=== PATIENT | male | born 1950 | race Caucasian/White ===

== ENCOUNTER 2022-03-19 04:17 | Day surgery (SDC) | payer OTHER, BC ==
[2022-03-12 17:30] VITALS: BMI 31.5
[2022-03-19] MEDS ORDERED: EPINEPHrine/PF 1 MG/1 ML (1:1,000) AMPULE ONE (07:23)
[2022-03-19] MEDS ORDERED: LIDOCAINE HCL/PF 1% SDV 5ML VIAL ONE (07:23)
[2022-03-19] MEDS ORDERED: TETRACAINE 0.5% OPHTH SOLN 2 ML BOTTLE ONE (07:23)
[2022-03-19] MEDS ORDERED: TOBRAMYCIN/DEXAMETHASONE OPHTH. OINTMENT 1 TUBE ONE (07:23)
[2022-03-19] MEDS ORDERED: POVIDONE-IODINE 5% OPHTHALMIC PREP 30 ML SOLUTION ONE (07:24)
[2022-03-19] MEDS ORDERED: ACETAMINOPHEN 325 MG TABLET (FP) PO PRN (07:29)
[2022-03-19] MEDS ORDERED: PHENYLEPHRINE 2.5% OPHTH SOLN 15 ML BOTTLE OP SCH (07:30)
[2022-03-19] MEDS ORDERED: TROPICAMIDE 1% OPHTH SOLN 15 ML BOTTLE OP SCH (07:30)
[2022-03-19] MEDS ORDERED: DICLOFENAC SODIUM 0.1% OPHTHALMIC 2.5ML BOTTLE OP SCH (07:30)
[2022-03-19] MEDS ORDERED: CIPROFLOXACIN HCL 0.3% OPHTH 2.5ML BOTTLE OP SCH (07:30)
[2022-03-19] MEDS ORDERED: CIPROFLOXACIN 0.3% EYE DROPS 5 ML BOTTLE ONE (08:43)
[2022-03-19] MEDS ORDERED: TROPICAMIDE 1% OPHTH SOLN 15 ML BOTTLE ONE (08:43)
[2022-03-19] MEDS ORDERED: PHENYLEPHRINE 2.5% OPTHALMIC DROP BOTTLE ONE (08:43)
[2022-03-19] MEDS ORDERED: DICLOFENAC SODIUM 0.1% OPHTHALMIC 2.5ML BOTTLE OS ONE ×3 (09:10→09:30)
[2022-03-19] MEDS ORDERED: TROPICAMIDE 1% OPHTH SOLN 15 ML BOTTLE OS ONE ×3 (09:10→09:30)
[2022-03-19] MEDS ORDERED: PHENYLEPHRINE 2.5% OPHTH SOLN 15 ML BOTTLE OS ONE ×3 (09:10→09:30)
[2022-03-19] MEDS ORDERED: CIPROFLOXACIN 0.3% EYE DROPS 5 ML BOTTLE OS ONE ×3 (09:10→09:30)
[2022-03-19] MEDS ORDERED: TETRACAINE 0.5% OPHTH SOLN 2 ML BOTTLE OS ONE (10:57)
[2022-03-19] MEDS ORDERED: MIDAZOLAM HCL 2 MG/2 ML SINGLE DOSE VIAL ONE (11:01)
[2022-03-19] MEDS ORDERED: POVIDONE-IODINE 5% OPHTHALMIC PREP 30 ML SOLUTION OS ONE (11:02)
[2022-03-19] MEDS ORDERED: BSS (NA/CA/MG/K) BALANCED SALT SOLUTION OPHTH SOLN 15 ML BOTTLE IO ONE (11:07)
[2022-03-19] MEDS ORDERED: LIDOCAINE HCL 1% PRESERVATIVE FREE - 30ML VIAL IO ONE (11:08)
[2022-03-19] MEDS ORDERED: CHONDROITIN SU A/HYALUR SOD 1 KIT IO ONE ×2 (11:09)
[2022-03-19] MEDS ORDERED: EPINEPHrine/PF 1 MG/1 ML (1:1,000) AMPULE SQ ONE (11:14)
[2022-03-19] MEDS ORDERED: TOBRAMYCIN/DEXAMETHASONE OPHTH. OINTMENT 1 TUBE TP ONE (11:35)
[2022-03-19 12:08] VITALS: TEMP 97.8
[2022-03-19 13:15] VITALS: BP 130/70; PULSE 70
== END 2022-03-19 12:50 | disposition home or self-care (01) ==
LOC: JASU-SURG 04:17
PROVIDERS: ATTEND Ophthalmology
PROC: 08RK3JZ Replacement of Left Lens with Synthetic Substitute, Percutaneous Approach (ICD-10-PCS; principal; 2022-03-19 10:30)
DX: H25.042 Posterior subcapsular polar age-related cataract, left eye (principal)
CPT/HCPCS: 66984; V2632; 82962

== ENCOUNTER 2022-04-16 03:51 | Day surgery (SDC) | payer OTHER, BC ==
[2022-04-15 10:59] VITALS: BMI 30.1
[~2022-04-16 03:51] MED LIST: EPINEPHrine/PF 1 MG/1 ML (1:1,000) AMPULE SQ ONE; TOBRAMYCIN/DEXAMETHASONE OPHTH. OINTMENT 1 TUBE OD ONE
[2022-04-16] MEDS ORDERED: ACETAMINOPHEN 325 MG TABLET (FP) PO PRN (07:29)
[2022-04-16 07:30] VITALS: RESP 18
[2022-04-16] MEDS ORDERED: DICLOFENAC SODIUM 0.1% OPHTHALMIC 2.5ML BOTTLE OP SCH (07:30)
[2022-04-16] MEDS ORDERED: CIPROFLOXACIN HCL 0.3% OPHTH 2.5ML BOTTLE OP SCH (07:30)
[2022-04-16] MEDS ORDERED: TROPICAMIDE 1% OPHTH SOLN 15 ML BOTTLE OP SCH (07:30)
[2022-04-16] MEDS ORDERED: PHENYLEPHRINE 2.5% OPHTH SOLN 15 ML BOTTLE OP SCH (07:30)
[2022-04-16] MEDS ORDERED: CIPROFLOXACIN 0.3% EYE DROPS 5 ML BOTTLE ONE (07:33)
[2022-04-16] MEDS ORDERED: PHENYLEPHRINE 2.5% OPTHALMIC DROP BOTTLE ONE (07:35)
[2022-04-16] MEDS ORDERED: TROPICAMIDE 1% OPHTH SOLN 15 ML BOTTLE ONE (07:35)
[2022-04-16] MEDS ORDERED: CIPROFLOXACIN 0.3% EYE DROPS 5 ML BOTTLE OD ONE ×2 (07:47→08:17)
[2022-04-16] MEDS ORDERED: PHENYLEPHRINE 2.5% OPHTH SOLN 15 ML BOTTLE OD ONE ×3 (07:47→08:17)
[2022-04-16] MEDS ORDERED: TROPICAMIDE 1% OPHTH SOLN 15 ML BOTTLE OD ONE ×3 (07:47→08:17)
[2022-04-16] MEDS ORDERED: DICLOFENAC SODIUM 0.1% OPHTHALMIC 2.5ML BOTTLE OD ONE ×3 (07:47→08:17)
[2022-04-16] MEDS ORDERED: CIPROFLOXACIN HCL 0.3% OPHTH 2.5ML BOTTLE OD ONE (08:02)
[2022-04-16] MEDS ORDERED: CHONDROITIN SU A/HYALUR SOD 1 KIT IO ONE (08:34)
[2022-04-16] MEDS ORDERED: MIDAZOLAM HCL 2 MG/2 ML SINGLE DOSE VIAL ONE (09:14)
[2022-04-16] MEDS ORDERED: TETRACAINE 0.5% OPHTH SOLN 2 ML BOTTLE TP ONE (09:26)
[2022-04-16] MEDS ORDERED: TETRACAINE 0.5% OPHTH SOLN 2 ML BOTTLE OD ONE (09:26)
[2022-04-16] MEDS ORDERED: POVIDONE-IODINE 5% OPHTHALMIC PREP 30 ML SOLUTION OD ONE ×2 (09:27)
[2022-04-16] MEDS ORDERED: BSS (NA/CA/MG/K) BALANCED SALT SOLUTION OPHTH SOLN 15 ML BOTTLE OD ONE (09:33)
[2022-04-16] MEDS ORDERED: LIDOCAINE HCL 1% PRESERVATIVE FREE - 30ML VIAL INF ONE ×2 (09:34)
[2022-04-16] MEDS ORDERED: LIDOCAINE HCL 1% PRESERVATIVE FREE - 30ML VIAL IO ONE (09:34)
[2022-04-16] MEDS ORDERED: EPINEPHrine/PF 1 MG/1 ML (1:1,000) AMPULE SQ ONE (09:42)
[2022-04-16] MEDS ORDERED: TOBRAMYCIN/DEXAMETHASONE OPHTH. OINTMENT 1 TUBE OD ONE (09:57)
[2022-04-16] MEDS ORDERED: TOBRAMYCIN/DEXAMETHASONE OPHTH. OINTMENT 1 TUBE TP ONE (09:57)
[2022-04-16 10:16] VITALS: BP 102/69; PULSE 70; TEMP 98.8
== END 2022-04-16 10:53 | disposition home or self-care (01) ==
LOC: JASU-SURG 03:51
PROVIDERS: ATTEND Ophthalmology
PROC: 08RJ3JZ Replacement of Right Lens with Synthetic Substitute, Percutaneous Approach (ICD-10-PCS; principal; 2022-04-16 09:30)
DX: H25.11 Age-related nuclear cataract, right eye (principal); I10 Essential (primary) hypertension; E11.9 Type 2 diabetes mellitus without complications
CPT/HCPCS: 82962

== ENCOUNTER 2023-08-24 17:51 | Inpatient (IN) | payer OTHER, BC ==
[2023-08-24] MEDS ORDERED: SODIUM CHLORIDE 1,000 ML IV SCH (18:30)
[2023-08-24 19:12] LABS: BASO % 0.1 % (0-2.0); EOS % 0.1 % (0-4.5); HEMATOCRIT 42.2 % (35.4-49); HEMOGLOBIN 13.4 GM/dL (11.7-16.9); LYMPH % 6.3 % (8-40); MCH 28.9 pg (25.7-33.7); MCHC 31.7 g/dl (32.0-35.9); MEAN CELL VOLUME 91.4 fl (80-96); MEAN PLT VOLUME 9.9 fl (7.5-11.1); MONO % 7.9 % (3.8-10.2); NEUT % 85.6 % (42.8-82.8); PLATELET COUNT 160 10^3/uL (134-434); RBC 4.62 M/mm3 (4.00-5.60); RDW 14.9 % (11.9-15.9); WHITE BLOOD COUNT 10.6 K/mm3 (4.0-10.0)
[2023-08-24 19:19] LABS: CHLORIDE 114 mmol/L (98-107); SODIUM 140 mmol/L (136-145)
[2023-08-24 19:19] LABS: INR 1.03 (0.83-1.09); PROTHROMBIN TIME (PATIENT) 11.9 SEC (9.7-13.0)
[2023-08-24 19:22] LABS: CALCIUM 8.2 mg/dL (8.5-10.1)
[2023-08-24 19:22] LABS: ACTIVATED PTT 29.4 SECONDS (25.2-36.5)
[2023-08-24 19:23] LABS: ALBUMIN 3.1 g/dl (3.4-5.0); ANION GAP 18 mmol/L (4-13); CO2 8 mmol/L (21-32)
[2023-08-24 19:24] LABS: GLUCOSE,RANDOM 181 mg/dL (74-106)
[2023-08-24 19:26] LABS: SGOT/AST 126 U/L (15-37); SGPT/ALT 35 U/L (13-61)
[2023-08-24 19:27] LABS: CHOLESTEROL 113 mg/dL (50-200)
[2023-08-24 19:28] LABS: TOT PROT 6.6 g/dl (6.4-8.2)
[2023-08-24 19:29] LABS: BILIRUBIN,TOTAL 0.6 mg/dL (0.2-1); LDL CHOLESTEROL (ONLY SJRH) 41 mg/dL (5-100)
[2023-08-24 19:30] LABS: ALK PHOS 72 U/L (45-117); HDL CHOLESTEROL 42 mg/dL (40-60)
[2023-08-24 19:53] LABS: BLOOD UREA NITROGEN 169.6 mg/dL (7-18); CREATININE 7.7 mg/dL (0.55-1.3)
[2023-08-24 20:32] LABS: EPI CELLS 1 /uL (0-25.1); HYALINE CASTS 2 /uL (0-3.1); URINE APPEARANCE CLOUDY; URINE BACTERIA 1120 /uL (0-1359); URINE BILIRUBIN NEGATIVE (NEGATIVE); URINE COLOR YELLOW; URINE GLUCOSE (UA) NEGATIVE (NEGATIVE); URINE KETONE TRACE (NEGATIVE); URINE LEUK ESTERASE 2+ (NEGATIVE); URINE NITRITE NEGATIVE (NEGATIVE); URINE PROTEIN 1+ (NEGATIVE); URINE RBC 547 /uL (0-23.9); URINE UROBILINOGEN 0.2 mg/dL (0.2-1.0); URINE WBC 814 /uL (0-25.8)
[2023-08-24 20:44] LABS: MAGNESIUM 3.7 mg/dL (1.8-2.4)
[2023-08-24 20:57] LABS: CHLORIDE 115 mmol/L (98-107); POTASSIUM 5.1 mmol/L (3.5-5.1); SODIUM 142 mmol/L (136-145)
[2023-08-24 20:58] LABS: ANION GAP 19 mmol/L (4-13); CO2 8 mmol/L (21-32)
[2023-08-24 20:59] LABS: GLUCOSE,RANDOM 181 mg/dL (74-106)
[2023-08-24 21:11] LABS: BLOOD UREA NITROGEN 166.6 mg/dL (7-18); CREATININE 7.8 mg/dL (0.55-1.3)
[2023-08-24] MEDS ORDERED: VANCOMYCIN 1,000 MG in DEXTROSE 5%-WATER - 250 ML IVPB ONE (21:11)
[2023-08-24 21:14] LABS: PHOSPHOROUS 10.8 mg/dL (2.5-4.9)
[2023-08-24] MEDS ORDERED: PIPERACILLIN/TAZOB 4.5 GM 3.375 GM in DEXTROSE 5%-WATER 100 ML IVPB ONE (21:17)
[2023-08-24] MEDS ORDERED: HALOPERIDOL LACTATE 5 MG/ML IM ONE (21:18)
[2023-08-24] MEDS ORDERED: SODIUM CHLORIDE 0.9% 500 ML INFUS.BAG IV ONE ×2 (21:18→22:03)
[2023-08-24] MEDS ORDERED: PIPERACILLIN/TAZOB 3.375 GM 3.375 GM/50 ML BAG IVPB ONE (21:26)
[2023-08-24] MEDS ORDERED: VANCOMYCIN 1 GRAM (PRE-DOCKED) 1,000 MG/250 ML BAG IVPB ONE (22:05)
[2023-08-25 00:03] LABS: VENOUS BASE EXCESS -29.9 mmol/L (-2-2); VENOUS O2 SATURATION 84.9 % (70-80); VENOUS PCO2 26.2 mmHg (38-52)
[2023-08-25 00:06] LABS: VENOUS PH 6.799 (7.310-7.410)
[2023-08-25] MEDS ORDERED: SODIUM CHLORIDE 1,000 ML IV STA (00:10)
[2023-08-25] MEDS ORDERED: MUPIROCIN 2% TOPICAL OINTMENT FOR DECOLONIZATION NS SCH (00:15)
[2023-08-25] MEDS ORDERED: SODIUM CHLORIDE 0.45% 1,000 ML IV SCH ×2 (01:00→01:12)
[2023-08-25] MEDS ORDERED: DEXTROSE 5%-WATER - 1,000 ML with SODIUM BICARBONATE 8.4% - 150 MEQ IV SCH (01:15)
[2023-08-25] MEDS ORDERED: DEXTROSE 5%-WATER - 1,000 ML IV SCH (01:15)
[2023-08-25 01:27] LABS: VENOUS BASE EXCESS -24.1 mmol/L (-2-2); VENOUS O2 SATURATION 32.4 % (70-80); VENOUS PCO2 26.9 mmHg (38-52)
[2023-08-25 01:28] LABS: VENOUS PH 6.984 (7.310-7.410)
[2023-08-25] MEDS ORDERED: NYSTATIN 100,000 UNIT/GM TOPICAL CREAM 15 GM TUBE TP SCH (01:30)
[2023-08-25] MEDS ORDERED: DEXTROSE 50%-WATER 25 GM/50 ML DISP.SYRIN IVPUSH ONE (01:30)
[2023-08-25] MEDS: NOREPINEPHRINE 0.9 % NACL 8 MG/250 ML BAG IVPB SCH ×2 (01:35→13:55)
[2023-08-25 01:46] LABS: CHLORIDE 121 mmol/L (98-107); POTASSIUM 4.9 mmol/L (3.5-5.1); SODIUM 146 mmol/L (136-145)
[2023-08-25 01:48] LABS: CALCIUM 7.1 mg/dL (8.5-10.1)
[2023-08-25 01:49] LABS: ALBUMIN 2.5 g/dl (3.4-5.0); ANION GAP 17 mmol/L (4-13); CO2 8 mmol/L (21-32); GLUCOSE,RANDOM 183 mg/dL (74-106); MAGNESIUM 3.1 mg/dL (1.8-2.4)
[2023-08-25 01:52] LABS: SGOT/AST 126 U/L (15-37); SGPT/ALT 33 U/L (13-61)
[2023-08-25 01:53] LABS: BILIRUBIN,TOTAL 0.4 mg/dL (0.2-1); TOT PROT 5.2 g/dl (6.4-8.2)
[2023-08-25 01:55] LABS: ALK PHOS 58 U/L (45-117)
[2023-08-25] MEDS ORDERED: PIPERACILLIN/TAZOB 2.25 GM 2.25 GM in DEXTROSE 5%-WATER - 50 ML IVPB SCH ×3 (02:00→09:00)
[2023-08-25] MEDS: HEPARIN NA (PORCINE) 5,000 UNITS/ML 1ML VIAL SQ SCH ×3 (02:03→21:25)
[2023-08-25 02:19] LABS: BLOOD UREA NITROGEN 154.8 mg/dL (7-18); CREATININE 7.6 mg/dL (0.55-1.3); PHOSPHOROUS 9.1 mg/dL (2.5-4.9)
[2023-08-25] MEDS ORDERED: SODIUM BICARBONATE 8.4% 50 MEQ/50 ML VIAL IVPUSH ONE (02:24)
[2023-08-25] MEDS ORDERED: NOREPINEPHRINE BITARTRATE 4 MG/4 ML ML IV ONE (02:33)
[2023-08-25] MEDS ORDERED: LACTATED RINGERS SOLUTION 1000 ML INFUS.BAG IV ONE (05:06)
[2023-08-25] MEDS: HYDROCORTISONE SOD SUCCINATE 100 MG/2 ML VIAL IVPUSH SCH ×3 (05:17→17:00)
[2023-08-25] MEDS: VASOPRESSIN 40 UNITS/100 ML BAG IV SCH (05:19)
[2023-08-25 05:53] LABS: ARTERIAL BLD GAS O2 SATURATION 98.7 % (95-98); ARTERIAL BLOOD GAS BASE EXCESS -20.5 mmol/L (-2-2)
[2023-08-25 06:03] LABS: ARTERIAL BLOOD GAS pH 7.164 (7.350-7.450)
[2023-08-25 07:20] LABS: HEMATOCRIT 35.6 % (35.4-49); HEMOGLOBIN 11.6 GM/dL (11.7-16.9); MCH 29.8 pg (25.7-33.7); MCHC 32.7 g/dl (32.0-35.9); MEAN PLT VOLUME 9.8 fl (7.5-11.1); PLATELET COUNT 113 10^3/uL (134-434); RBC 3.91 M/mm3 (4.00-5.60); RDW 14.4 % (11.9-15.9); WHITE BLOOD COUNT 10.6 K/mm3 (4.0-10.0)
[2023-08-25 07:40] LABS: CHLORIDE 117 mmol/L (98-107); POTASSIUM 4.2 mmol/L (3.5-5.1); SODIUM 145 mmol/L (136-145)
[2023-08-25 07:42] LABS: GLUCOSE,RANDOM 225 mg/dL (74-106)
[2023-08-25 07:43] LABS: ALBUMIN 2.4 g/dl (3.4-5.0); ANION GAP 19 mmol/L (4-13); CO2 9 mmol/L (21-32); MAGNESIUM 2.8 mg/dL (1.8-2.4)
[2023-08-25 07:46] LABS: CREATININE 6.6 mg/dL (0.55-1.3); SGOT/AST 114 U/L (15-37); SGPT/ALT 33 U/L (13-61)
[2023-08-25 07:47] LABS: BILIRUBIN,TOTAL 0.4 mg/dL (0.2-1)
[2023-08-25 07:48] LABS: TOT PROT 5.1 g/dl (6.4-8.2)
[2023-08-25 07:49] LABS: ALK PHOS 56 U/L (45-117)
[2023-08-25 08:29] LABS: BLOOD UREA NITROGEN 146.6 mg/dL (7-18); CALCIUM 6.8 mg/dL (8.5-10.1)
[2023-08-25] MEDS ORDERED: SODIUM BICARBONATE 8.4% 50 MEQ/50 ML DISP.SYRIN IVPUSH ONE (08:34)
[2023-08-25] MEDS: MUPIROCIN 2% TOPICAL OINTMENT FOR DECOLONIZATION NS SCH ×2 (09:18→21:25)
[2023-08-25] MEDS: NYSTATIN 100,000 UNIT/GM TOPICAL CREAM 15 GM TUBE TP SCH ×2 (09:18→22:01)
[2023-08-25] MEDS ORDERED: CEFTRIAXONE 1 GM in DEXTROSE 5%-WATER - 50 ML IVPB SCH (10:00)
[2023-08-25] MEDS ORDERED: LACTATED RINGERS SOLUTION 1,000 ML/1,000 ML INFUS.BAG IV STA (10:39)
[2023-08-25] MEDS ORDERED: SODIUM BICARBONATE 8.4% - 150 MEQ in DEXTROSE 5%-WATER - 1,000 ML IV SCH (11:06)
[2023-08-25] MEDS: LYTES/YERBA SANTA 240 ML BOTTLE MM SCH (12:11)
[2023-08-25] MEDS: PIPERACILLIN/TAZOB 2.25 GM 2.25 GM in DEXTROSE 5%-WATER - 50 ML IVPB SCH ×3 (13:56→21:24)
[2023-08-25] MEDS: DEXMEDETOMIDINE PREMIX 400 MCG/100 ML BAG IVPB SCH (13:56)
[2023-08-25] MEDS: INSULIN SLIDING SCALE (NOVOLOG) 1 VIAL SQ SCH ×2 (18:30→21:43)
[2023-08-25] MEDS: BACLOFEN 10 MG TABLET (FP) PO SCH (21:24)
[2023-08-25] MEDS: CHLORHEXIDINE GLUCONATE 4% CLEANSER FOR DECOLONIZATION TP SCH (21:25)
[2023-08-25 21:38] LABS: CHLORIDE 113 mmol/L (98-107); POTASSIUM 3.2 mmol/L (3.5-5.1); SODIUM 145 mmol/L (136-145)
[2023-08-25] MEDS ORDERED: INSULIN (NOVOLOG) ASPART 100 UNITS/ML 10ML VIAL ONE (21:38)
[2023-08-25 21:40] LABS: ALBUMIN 2.5 g/dl (3.4-5.0); ANION GAP 17 mmol/L (4-13); CO2 16 mmol/L (21-32); GLUCOSE,RANDOM 308 mg/dL (74-106); MAGNESIUM 2.5 mg/dL (1.8-2.4)
[2023-08-25 21:43] LABS: SGOT/AST 91 U/L (15-37); SGPT/ALT 37 U/L (13-61)
[2023-08-25 21:44] LABS: PHOSPHOROUS 5.4 mg/dL (2.5-4.9)
[2023-08-25 21:45] LABS: BILIRUBIN,TOTAL 0.5 mg/dL (0.2-1); TOT PROT 5.3 g/dl (6.4-8.2)
[2023-08-25 21:46] LABS: ALK PHOS 57 U/L (45-117)
[2023-08-25 21:53] LABS: BLOOD UREA NITROGEN 124.6 mg/dL (7-18); CALCIUM 6.5 mg/dL (8.5-10.1)
[2023-08-25] MEDS: KCL 20 MEQ PREMIX BAG 100 ML IVPB SCH (22:19)
[2023-08-25] MEDS: CALCIUM GLUC IN NACL, ISO-OSM 1 GM/50 ML BAG IVPB SCH ×2 (22:19→23:30)
[2023-08-26] MEDS: HYDROCORTISONE SOD SUCCINATE 100 MG/2 ML VIAL IVPUSH SCH ×3 (01:29→18:31)
[2023-08-26] MEDS: KCL 20 MEQ PREMIX BAG 100 ML IVPB SCH (01:30)
[2023-08-26] MEDS: CALCIUM GLUC IN NACL, ISO-OSM 1 GM/50 ML BAG IVPB SCH (01:32)
[2023-08-26] MEDS: NOREPINEPHRINE 0.9 % NACL 8 MG/250 ML BAG IVPB SCH (01:44)
[2023-08-26] MEDS: PIPERACILLIN/TAZOB 2.25 GM 2.25 GM in DEXTROSE 5%-WATER - 50 ML IVPB SCH ×4 (03:37→21:47)
[2023-08-26] MEDS: VASOPRESSIN 40 UNITS/100 ML BAG IV SCH (06:55)
[2023-08-26] MEDS ORDERED: INSULIN (NOVOLOG) ASPART 100 UNITS/ML 10ML VIAL ONE (06:56)
[2023-08-26] MEDS: BACLOFEN 10 MG TABLET (FP) PO SCH ×2 (06:58→18:31)
[2023-08-26] MEDS: INSULIN SLIDING SCALE (NOVOLOG) 1 VIAL SQ SCH ×4 (06:58→21:46)
[2023-08-26 07:15] LABS: HEMATOCRIT 37.5 % (35.4-49); HEMOGLOBIN 12.6 GM/dL (11.7-16.9); MCH 29.6 pg (25.7-33.7); MCHC 33.7 g/dl (32.0-35.9); MEAN CELL VOLUME 87.8 fl (80-96); MEAN PLT VOLUME 9.7 fl (7.5-11.1); PLATELET COUNT 108 10^3/uL (134-434); RBC 4.27 M/mm3 (4.00-5.60); RDW 14.1 % (11.9-15.9); WHITE BLOOD COUNT 10.7 K/mm3 (4.0-10.0)
[2023-08-26 07:32] LABS: CHLORIDE 109 mmol/L (98-107); POTASSIUM 3.5 mmol/L (3.5-5.1); SODIUM 144 mmol/L (136-145)
[2023-08-26 07:38] LABS: CALCIUM 7.2 mg/dL (8.5-10.1)
[2023-08-26 07:39] LABS: ALBUMIN 2.5 g/dl (3.4-5.0); ANION GAP 13 mmol/L (4-13); CO2 23 mmol/L (21-32); GLUCOSE,RANDOM 378 mg/dL (74-106); MAGNESIUM 2.5 mg/dL (1.8-2.4)
[2023-08-26 07:40] LABS: SGOT/AST 76 U/L (15-37); SGPT/ALT 35 U/L (13-61)
[2023-08-26 07:42] LABS: BILIRUBIN,TOTAL 0.7 mg/dL (0.2-1); CREATININE 4.3 mg/dL (0.55-1.3); PHOSPHOROUS 4.5 mg/dL (2.5-4.9)
[2023-08-26 07:43] LABS: ALK PHOS 60 U/L (45-117)
[2023-08-26 07:45] LABS: TOT PROT 5.5 g/dl (6.4-8.2)
[2023-08-26] MEDS ORDERED: INSULIN (LEVEMIR) 100 UNITS/ML UNITS SQ SCH ×2 (07:45)
[2023-08-26 07:52] LABS: BLOOD UREA NITROGEN 108.7 mg/dL (7-18)
[2023-08-26] MEDS ORDERED: MAGNESIUM SULFATE IN WATER 2 GM/50 ML IVPB IVPB ONE (07:59)
[2023-08-26] MEDS ORDERED: LACTATED RINGERS SOLUTION 1,000 ML/1,000 ML INFUS.BAG IV SCH (09:15)
[2023-08-26] MEDS: HEPARIN NA (PORCINE) 5,000 UNITS/ML 1ML VIAL SQ SCH ×2 (09:49→21:47)
[2023-08-26] MEDS: NYSTATIN 100,000 UNIT/GM TOPICAL CREAM 15 GM TUBE TP SCH ×2 (09:50→21:51)
[2023-08-26] MEDS: MUPIROCIN 2% TOPICAL OINTMENT FOR DECOLONIZATION NS SCH ×2 (09:50→21:54)
[2023-08-26] MEDS: LYTES/YERBA SANTA 240 ML BOTTLE MM SCH (09:50)
[2023-08-26] MEDS ORDERED: LACTATED RINGERS SOLUTION 1000 ML INFUS.BAG IV SCH (13:15)
[2023-08-26] MEDS: DEXMEDETOMIDINE PREMIX 400 MCG/100 ML BAG IVPB SCH (21:21)
[2023-08-26] MEDS: CHLORHEXIDINE GLUCONATE 4% CLEANSER FOR DECOLONIZATION TP SCH (21:47)
[2023-08-26] MEDS: INSULIN (LEVEMIR) 100 UNITS/ML UNITS SQ SCH (21:53)
[2023-08-27] MEDS: HYDROCORTISONE SOD SUCCINATE 100 MG/2 ML VIAL IVPUSH SCH ×2 (01:12→09:39)
[2023-08-27] MEDS: PIPERACILLIN/TAZOB 2.25 GM 2.25 GM in DEXTROSE 5%-WATER - 50 ML IVPB SCH ×2 (02:09→09:37)
[2023-08-27] MEDS: VASOPRESSIN 40 UNITS/100 ML BAG IV SCH (06:19)
[2023-08-27] MEDS: NOREPINEPHRINE 0.9 % NACL 8 MG/250 ML BAG IVPB SCH (06:19)
[2023-08-27] MEDS ORDERED: INSULIN (LEVEMIR) 100 UNITS/ML UNITS SQ ONE (06:21)
[2023-08-27] MEDS: INSULIN SLIDING SCALE (NOVOLOG) 1 VIAL SQ SCH ×3 (06:22→21:34)
[2023-08-27] MEDS: INSULIN (LEVEMIR) 100 UNITS/ML UNITS SQ SCH ×2 (06:23→21:28)
[2023-08-27 07:22] LABS: HEMATOCRIT 33.5 % (35.4-49); HEMOGLOBIN 11.3 GM/dL (11.7-16.9); MCH 29.6 pg (25.7-33.7); MCHC 33.7 g/dl (32.0-35.9); MEAN CELL VOLUME 87.8 fl (80-96); MEAN PLT VOLUME 9.7 fl (7.5-11.1); PLATELET COUNT 91 10^3/uL (134-434); RBC 3.81 M/mm3 (4.00-5.60)
[2023-08-27 07:41] LABS: CHLORIDE 112 mmol/L (98-107); SODIUM 147 mmol/L (136-145)
[2023-08-27 07:45] LABS: CO2 27 mmol/L (21-32); GLUCOSE,RANDOM 200 mg/dL (74-106)
[2023-08-27 07:46] LABS: ALBUMIN 2.2 g/dl (3.4-5.0); MAGNESIUM 2.3 mg/dL (1.8-2.4)
[2023-08-27 07:48] LABS: CREATININE 2.9 mg/dL (0.55-1.3); PHOSPHOROUS 2.5 mg/dL (2.5-4.9); SGOT/AST 54 U/L (15-37); SGPT/ALT 32 U/L (13-61)
[2023-08-27 07:50] LABS: BILIRUBIN,TOTAL 0.8 mg/dL (0.2-1); TOT PROT 5.1 g/dl (6.4-8.2)
[2023-08-27 07:51] LABS: ALK PHOS 55 U/L (45-117)
[2023-08-27 08:00] LABS: ANION GAP 8 mmol/L (4-13); BLOOD UREA NITROGEN 76.2 mg/dL (7-18); POTASSIUM 2.7 mmol/L (3.5-5.1)
[2023-08-27] MEDS ORDERED: POTASSIUM CHLORIDE ORAL LIQUID 20 MEQ/15 ML PO ONE ×2 (09:15→15:39)
[2023-08-27] MEDS: KCL 10 MEQ IVPB 10 MEQ/100 ML INFUS.BAG IVPB SCH ×3 (09:39→12:46)
[2023-08-27] MEDS: HEPARIN NA (PORCINE) 5,000 UNITS/ML 1ML VIAL SQ SCH ×2 (09:39→21:28)
[2023-08-27] MEDS: MUPIROCIN 2% TOPICAL OINTMENT FOR DECOLONIZATION NS SCH ×2 (09:48→21:27)
[2023-08-27] MEDS: LYTES/YERBA SANTA 240 ML BOTTLE MM SCH (09:48)
[2023-08-27] MEDS: NYSTATIN 100,000 UNIT/GM TOPICAL CREAM 15 GM TUBE TP SCH ×2 (09:49→21:28)
[2023-08-27] MEDS ORDERED: LACTATED RINGERS SOLUTION 1,000 ML/1,000 ML INFUS.BAG IV SCH (15:40)
[2023-08-27] MEDS ORDERED: DEXTROSE 5%-WATER - 1,000 ML IV SCH (17:15)
[2023-08-27] MEDS ORDERED: HYDROCORTISONE SOD SUCCINATE 100 MG/2 ML VIAL IVPUSH SCH (18:00)
[2023-08-27 18:12] LABS: ARTERIAL BLD GAS O2 SATURATION 97.8 % (95-98); ARTERIAL BLOOD GAS BASE EXCESS 1.5 mmol/L (-2-2); ARTERIAL BLOOD GAS PO2 94.1 mmHg (80-100); ARTERIAL BLOOD GAS pH 7.505 (7.350-7.450)
[2023-08-27 18:13] LABS: ALLENS TEST POSITIVE
[2023-08-27 18:19] LABS: CHLORIDE 112 mmol/L (98-107); SODIUM 147 mmol/L (136-145)
[2023-08-27 18:20] LABS: CALCIUM 7.1 mg/dL (8.5-10.1)
[2023-08-27 18:21] LABS: BLOOD UREA NITROGEN 62.1 mg/dL (7-18); CO2 26 mmol/L (21-32); GLUCOSE,RANDOM 226 mg/dL (74-106)
[2023-08-27 18:24] LABS: CREATININE 2.5 mg/dL (0.55-1.3)
[2023-08-27 18:43] LABS: ANION GAP 10 mmol/L (4-13); LACTIC ACID 2.5 mmol/L (0.4-2.0); POTASSIUM 2.9 mmol/L (3.5-5.1)
[2023-08-27] MEDS: CHLORHEXIDINE GLUCONATE 4% CLEANSER FOR DECOLONIZATION TP SCH (21:28)
[2023-08-27] MEDS ORDERED: INSULIN (NOVOLOG) ASPART 100 UNITS/ML 10ML VIAL ONE (21:36)
[2023-08-27] MEDS ORDERED: AMOXICILLIN 500 MG CAPSULE (FP) PO SCH (22:00)
[2023-08-28] MEDS ORDERED: LACTATED RINGERS SOLUTION 1,000 ML/1,000 ML INFUS.BAG IV ONE (00:01)
[2023-08-28] MEDS ORDERED: POTASSIUM CHLORIDE ORAL LIQUID 20 MEQ/15 ML PO ONE (00:03)
[2023-08-28] MEDS: INSULIN SLIDING SCALE (NOVOLOG) 1 VIAL SQ SCH ×4 (06:24→21:19)
[2023-08-28] MEDS: INSULIN (LEVEMIR) 100 UNITS/ML UNITS SQ SCH ×2 (06:24→21:18)
[2023-08-28 07:25] LABS: BASO % 0.2 % (0-2.0); EOS % 0.1 % (0-4.5); HEMATOCRIT 36.1 % (35.4-49); LYMPH % 11.9 % (8-40); MCH 29.3 pg (25.7-33.7); MCHC 33.2 g/dl (32.0-35.9); MEAN CELL VOLUME 88.4 fl (80-96); MEAN PLT VOLUME 9.4 fl (7.5-11.1); NEUT % 79.8 % (42.8-82.8); PLATELET COUNT 86 10^3/uL (134-434); RBC 4.08 M/mm3 (4.00-5.60); WHITE BLOOD COUNT 11.7 K/mm3 (4.0-10.0)
[2023-08-28 07:36] LABS: CHLORIDE 114 mmol/L (98-107); SODIUM 147 mmol/L (136-145)
[2023-08-28 07:40] LABS: ALBUMIN 2.3 g/dl (3.4-5.0); BLOOD UREA NITROGEN 48.3 mg/dL (7-18); CALCIUM 7.3 mg/dL (8.5-10.1); CO2 27 mmol/L (21-32); GLUCOSE,RANDOM 109 mg/dL (74-106)
[2023-08-28 07:43] LABS: CREATININE 1.9 mg/dL (0.55-1.3); SGOT/AST 37 U/L (15-37); SGPT/ALT 29 U/L (13-61)
[2023-08-28 07:44] LABS: TOT PROT 5.3 g/dl (6.4-8.2)
[2023-08-28 07:46] LABS: ALK PHOS 54 U/L (45-117)
[2023-08-28 08:22] LABS: ANION GAP 7 mmol/L (4-13); POTASSIUM 2.6 mmol/L (3.5-5.1)
[2023-08-28] MEDS: LYTES/YERBA SANTA 240 ML BOTTLE MM SCH (10:11)
[2023-08-28] MEDS: POTASSIUM CHLORIDE ORAL LIQUID 20 MEQ/15 ML PO ONE ×2 (10:12→10:22)
[2023-08-28] MEDS: AMOXICILLIN 500 MG CAPSULE (FP) PO SCH ×2 (10:12→21:17)
[2023-08-28] MEDS: HEPARIN NA (PORCINE) 5,000 UNITS/ML 1ML VIAL SQ SCH ×2 (10:13→21:17)
[2023-08-28] MEDS: HYDROCORTISONE SOD SUCCINATE 100 MG/2 ML VIAL IVPB SCH (10:13)
[2023-08-28] MEDS: KCL 10 MEQ IVPB 10 MEQ/100 ML INFUS.BAG IVPB SCH ×3 (10:16→13:10)
[2023-08-28 14:18] LABS: EPI CELLS 6 /uL (0-25.1); HYALINE CASTS 2 /uL (0-3.1); PH,URINE 7.5 (5.0-8.0); URINE APPEARANCE TURBID; URINE BACTERIA 2217 /uL (0-1359); URINE BILIRUBIN NEGATIVE (NEGATIVE); URINE COLOR ORANGE; URINE GLUCOSE (UA) NEGATIVE (NEGATIVE); URINE KETONE NEGATIVE (NEGATIVE); URINE LEUK ESTERASE 3+ (NEGATIVE); URINE NITRITE NEGATIVE (NEGATIVE); URINE PROTEIN 3+ (NEGATIVE); URINE UROBILINOGEN 0.2 mg/dL (0.2-1.0); URINE WBC 5481 /uL (0-25.8)
[2023-08-28 14:19] LABS: YEAST NEGATIVE (NEGATIVE)
[2023-08-28] MEDS: NYSTATIN 100,000 UNIT/GM TOPICAL CREAM 15 GM TUBE TP SCH ×2 (17:11→21:26)
[2023-08-29] MEDS: INSULIN SLIDING SCALE (NOVOLOG) 1 VIAL SQ SCH ×4 (06:10→21:15)
[2023-08-29] MEDS: INSULIN (LEVEMIR) 100 UNITS/ML UNITS SQ SCH ×2 (06:12→21:14)
[2023-08-29 06:50] LABS: BASO % 0.1 % (0-2.0); EOS % 1.7 % (0-4.5); HEMATOCRIT 34.5 % (35.4-49); HEMOGLOBIN 11.3 GM/dL (11.7-16.9); LYMPH % 15.2 % (8-40); MCHC 32.8 g/dl (32.0-35.9); MEAN CELL VOLUME 88.4 fl (80-96); MEAN PLT VOLUME 9.2 fl (7.5-11.1); MONO % 9.7 % (3.8-10.2); NEUT % 73.3 % (42.8-82.8); PLATELET COUNT 76 10^3/uL (134-434); RDW 13.6 % (11.9-15.9); WHITE BLOOD COUNT 7.3 K/mm3 (4.0-10.0)
[2023-08-29 07:09] LABS: POTASSIUM 3.1 mmol/L (3.5-5.1)
[2023-08-29 07:15] LABS: ALBUMIN 2.1 g/dl (3.4-5.0); BLOOD UREA NITROGEN 36.5 mg/dL (7-18); CALCIUM 7.2 mg/dL (8.5-10.1)
[2023-08-29 07:18] LABS: CREATININE 1.6 mg/dL (0.55-1.3)
[2023-08-29 07:20] LABS: TOT PROT 4.8 g/dl (6.4-8.2)
[2023-08-29 08:06] LABS: BILIRUBIN,TOTAL 0.6 mg/dL (0.2-1)
[2023-08-29] MEDS ORDERED: POTASSIUM CHLORIDE TABS 10 MEQ TABLET.ER (FP) PO ONE (10:29)
[2023-08-29] MEDS: HEPARIN NA (PORCINE) 5,000 UNITS/ML 1ML VIAL SQ SCH ×2 (10:33→21:19)
[2023-08-29] MEDS: AMOXICILLIN 500 MG CAPSULE (FP) PO SCH ×2 (10:34→21:19)
[2023-08-29] MEDS: HYDROCORTISONE SOD SUCCINATE 100 MG/2 ML VIAL IVPB SCH (10:50)
[2023-08-29] MEDS: NYSTATIN 100,000 UNIT/GM TOPICAL CREAM 15 GM TUBE TP SCH ×2 (10:53→21:15)
[2023-08-29] MEDS: LYTES/YERBA SANTA 240 ML BOTTLE MM SCH (11:59)
[2023-08-29] MEDS ORDERED: HYDROCORTISONE SOD SUCCINATE 100 MG/2 ML VIAL IVPUSH ONE (12:00)
[2023-08-29] MEDS ORDERED: INSULIN (NOVOLOG) ASPART 100 UNITS/ML 10ML VIAL ONE ×2 (17:01→21:04)
[2023-08-29] MEDS ORDERED: POTASSIUM CHLORIDE ORAL LIQUID 20 MEQ/15 ML PO ONE (19:57)
[2023-08-29] MEDS: KCL 10 MEQ IVPB 10 MEQ/100 ML INFUS.BAG IVPB SCH ×2 (20:12→21:47)
[2023-08-30] MEDS: KCL 10 MEQ IVPB 10 MEQ/100 ML INFUS.BAG IVPB SCH ×4 (00:05→23:13)
[2023-08-30] MEDS ORDERED: KCL 10 MEQ IVPB 10 MEQ/100 ML INFUS.BAG IVPB SCH ×2 (01:45→17:30)
[2023-08-30] MEDS: INSULIN (LEVEMIR) 100 UNITS/ML UNITS SQ SCH ×2 (06:26→21:07)
[2023-08-30] MEDS: LYTES/YERBA SANTA 240 ML BOTTLE MM SCH (06:27)
[2023-08-30] MEDS: INSULIN SLIDING SCALE (NOVOLOG) 1 VIAL SQ SCH ×4 (06:27→21:07)
[2023-08-30 07:17] LABS: BASO % 0.1 % (0-2.0); EOS % 1.2 % (0-4.5); HEMATOCRIT 35.8 % (35.4-49); HEMOGLOBIN 11.6 GM/dL (11.7-16.9); LYMPH % 15.6 % (8-40); MCH 28.6 pg (25.7-33.7); MCHC 32.3 g/dl (32.0-35.9); MEAN CELL VOLUME 88.4 fl (80-96); MEAN PLT VOLUME 9.7 fl (7.5-11.1); MONO % 10.3 % (3.8-10.2); NEUT % 72.8 % (42.8-82.8); PLATELET COUNT 87 10^3/uL (134-434); RBC 4.05 M/mm3 (4.00-5.60); RDW 14.4 % (11.9-15.9); WHITE BLOOD COUNT 9.1 K/mm3 (4.0-10.0)
[2023-08-30 07:40] LABS: POTASSIUM 3.2 mmol/L (3.5-5.1)
[2023-08-30 07:42] LABS: ALBUMIN 2.2 g/dl (3.4-5.0); BLOOD UREA NITROGEN 39.4 mg/dL (7-18); CALCIUM 7.8 mg/dL (8.5-10.1)
[2023-08-30 07:45] LABS: CREATININE 1.9 mg/dL (0.55-1.3)
[2023-08-30 07:47] LABS: BILIRUBIN,TOTAL 0.4 mg/dL (0.2-1)
[2023-08-30] MEDS: AMOXICILLIN 500 MG CAPSULE (FP) PO SCH ×2 (10:39→21:06)
[2023-08-30] MEDS: HEPARIN NA (PORCINE) 5,000 UNITS/ML 1ML VIAL SQ SCH ×2 (10:39→21:05)
[2023-08-30] MEDS: NYSTATIN 100,000 UNIT/GM TOPICAL CREAM 15 GM TUBE TP SCH ×2 (10:40→21:05)
[2023-08-30] MEDS: HYDROCORTISONE SOD SUCCINATE 100 MG/2 ML VIAL IVPB SCH (11:36)
[2023-08-30 16:38] VITALS: BMI 30.2
[2023-08-30] MEDS: POTASSIUM CHLORIDE ORAL LIQUID 20 MEQ/15 ML PO ONE ×2 (16:53→17:29)
[2023-08-30] MEDS ORDERED: INSULIN (NOVOLOG) ASPART 100 UNITS/ML 10ML VIAL ONE (21:01)
[2023-08-30] MEDS: BANATROL PLUS POWDER PACKET PO SCH (21:06)
[2023-08-31] MEDS: BANATROL PLUS POWDER PACKET PO SCH ×3 (06:09→21:13)
[2023-08-31] MEDS: INSULIN (LEVEMIR) 100 UNITS/ML UNITS SQ SCH ×2 (06:10→22:41)
[2023-08-31] MEDS: INSULIN SLIDING SCALE (NOVOLOG) 1 VIAL SQ SCH ×4 (06:11→21:16)
[2023-08-31 07:21] LABS: BASO % 0.3 % (0-2.0); EOS % 2.3 % (0-4.5); HEMATOCRIT 33.5 % (35.4-49); HEMOGLOBIN 11.1 GM/dL (11.7-16.9); LYMPH % 15.6 % (8-40); MCH 29.7 pg (25.7-33.7); MCHC 33.3 g/dl (32.0-35.9); MEAN CELL VOLUME 89.2 fl (80-96); MEAN PLT VOLUME 9.9 fl (7.5-11.1); MONO % 10.1 % (3.8-10.2); NEUT % 71.7 % (42.8-82.8); PLATELET COUNT 87 10^3/uL (134-434); RBC 3.75 M/mm3 (4.00-5.60); RDW 13.8 % (11.9-15.9); WHITE BLOOD COUNT 9.3 K/mm3 (4.0-10.0)
[2023-08-31 07:36] LABS: POTASSIUM 3.5 mmol/L (3.5-5.1)
[2023-08-31 07:45] LABS: BLOOD UREA NITROGEN 41.5 mg/dL (7-18); CALCIUM 7.5 mg/dL (8.5-10.1); MAGNESIUM 1.9 mg/dL (1.8-2.4)
[2023-08-31 07:48] LABS: CREATININE 1.8 mg/dL (0.55-1.3)
[2023-08-31 07:55] LABS: BILIRUBIN,TOTAL 0.4 mg/dL (0.2-1)
[2023-08-31] MEDS: AMOXICILLIN 500 MG CAPSULE (FP) PO SCH ×2 (09:19→21:13)
[2023-08-31] MEDS: HEPARIN NA (PORCINE) 5,000 UNITS/ML 1ML VIAL SQ SCH ×2 (09:19→21:14)
[2023-08-31] MEDS: LACTOBACILLUS ACIDOPHILUS 1 TABLET PO SCH (09:19)
[2023-08-31] MEDS: HYDROCORTISONE SOD SUCCINATE 100 MG/2 ML VIAL IVPB SCH (09:19)
[2023-08-31] MEDS: NYSTATIN 100,000 UNIT/GM TOPICAL CREAM 15 GM TUBE TP SCH ×2 (09:33→21:14)
[2023-08-31] MEDS: LYTES/YERBA SANTA 240 ML BOTTLE MM SCH (09:34)
[2023-09-01] MEDS: BANATROL PLUS POWDER PACKET PO SCH ×3 (06:22→21:06)
[2023-09-01] MEDS ORDERED: INSULIN (NOVOLOG) ASPART 100 UNITS/ML 10ML VIAL ONE ×2 (06:29→21:14)
[2023-09-01] MEDS: INSULIN (LEVEMIR) 100 UNITS/ML UNITS SQ SCH ×2 (07:23→21:07)
[2023-09-01] MEDS: INSULIN SLIDING SCALE (NOVOLOG) 1 VIAL SQ SCH ×4 (07:23→21:16)
[2023-09-01] MEDS: LYTES/YERBA SANTA 240 ML BOTTLE MM SCH (09:08)
[2023-09-01] MEDS: AMOXICILLIN 500 MG CAPSULE (FP) PO SCH ×2 (09:33→21:06)
[2023-09-01] MEDS: LACTOBACILLUS ACIDOPHILUS 1 TABLET PO SCH (09:33)
[2023-09-01] MEDS: HEPARIN NA (PORCINE) 5,000 UNITS/ML 1ML VIAL SQ SCH ×2 (09:33→21:06)
[2023-09-01] MEDS: NYSTATIN 100,000 UNIT/GM TOPICAL CREAM 15 GM TUBE TP SCH ×2 (09:34→21:07)
[2023-09-02] MEDS: INSULIN SLIDING SCALE (NOVOLOG) 1 VIAL SQ SCH ×4 (06:22→21:18)
[2023-09-02] MEDS: INSULIN (LEVEMIR) 100 UNITS/ML UNITS SQ SCH ×2 (06:22→21:17)
[2023-09-02] MEDS: BANATROL PLUS POWDER PACKET PO SCH ×3 (06:41→21:25)
[2023-09-02] MEDS: LYTES/YERBA SANTA 240 ML BOTTLE MM SCH (06:41)
[2023-09-02 07:10] LABS: BASO % 0.6 % (0-2.0); EOS % 1.2 % (0-4.5); HEMATOCRIT 31.1 % (35.4-49); HEMOGLOBIN 10.4 GM/dL (11.7-16.9); LYMPH % 19.5 % (8-40); MCH 29.2 pg (25.7-33.7); MCHC 33.3 g/dl (32.0-35.9); MEAN CELL VOLUME 87.8 fl (80-96); MEAN PLT VOLUME 10.3 fl (7.5-11.1); MONO % 9.6 % (3.8-10.2); NEUT % 69.1 % (42.8-82.8); PLATELET COUNT 119 10^3/uL (134-434); RBC 3.54 M/mm3 (4.00-5.60); RDW 14.2 % (11.9-15.9); WHITE BLOOD COUNT 5.5 K/mm3 (4.0-10.0)
[2023-09-02 07:42] LABS: CALCIUM 7.7 mg/dL (8.5-10.1)
[2023-09-02 07:43] LABS: BLOOD UREA NITROGEN 26.5 mg/dL (7-18)
[2023-09-02 07:46] LABS: CREATININE 1.4 mg/dL (0.55-1.3)
[2023-09-02 07:47] LABS: BILIRUBIN,TOTAL 0.3 mg/dL (0.2-1); TOT PROT 4.9 g/dl (6.4-8.2)
[2023-09-02] MEDS: HEPARIN NA (PORCINE) 5,000 UNITS/ML 1ML VIAL SQ SCH ×2 (10:40→21:17)
[2023-09-02] MEDS: AMOXICILLIN 500 MG CAPSULE (FP) PO SCH ×2 (10:41→21:16)
[2023-09-02] MEDS: LACTOBACILLUS ACIDOPHILUS 1 TABLET PO SCH (10:41)
[2023-09-02] MEDS: NYSTATIN 100,000 UNIT/GM TOPICAL CREAM 15 GM TUBE TP SCH ×2 (10:46→21:19)
[2023-09-02] MEDS ORDERED: POTASSIUM CHLORIDE ORAL LIQUID 20 MEQ/15 ML PO ONE (15:34)
[2023-09-02] MEDS: KCL 10 MEQ IVPB 10 MEQ/100 ML INFUS.BAG IVPB SCH ×3 (16:58→21:59)
[2023-09-02] MEDS ORDERED: KCL 10 MEQ IVPB 10 MEQ/100 ML INFUS.BAG IVPB SCH (21:45)
[2023-09-02] MEDS ORDERED: ACETAMINOPHEN 325 MG TABLET (FP) PO PRN (21:58)
[2023-09-03 00:07] LABS: HEMATOCRIT 30.8 % (35.4-49); HEMOGLOBIN 10.1 GM/dL (11.7-16.9); MCH 29.1 pg (25.7-33.7); MCHC 32.8 g/dl (32.0-35.9); MEAN CELL VOLUME 88.6 fl (80-96); PLATELET COUNT 136 10^3/uL (134-434); RBC 3.48 M/mm3 (4.00-5.60); RDW 14.4 % (11.9-15.9); WHITE BLOOD COUNT 5.8 K/mm3 (4.0-10.0)
[2023-09-03 00:09] LABS: EPI CELLS 10 /uL (0-25.1); HYALINE CASTS 2 /uL (0-3.1); PH,URINE 5.5 (5.0-8.0); URINE APPEARANCE CLEAR; URINE BACTERIA 30 /uL (0-1359); URINE BILIRUBIN NEGATIVE (NEGATIVE); URINE COLOR YELLOW; URINE GLUCOSE (UA) NEGATIVE (NEGATIVE); URINE KETONE NEGATIVE (NEGATIVE); URINE LEUK ESTERASE NEGATIVE (NEGATIVE); URINE NITRITE NEGATIVE (NEGATIVE); URINE PROTEIN 1+ (NEGATIVE); URINE RBC 68 /uL (0-23.9); URINE UROBILINOGEN 0.2 mg/dL (0.2-1.0); URINE WBC 29 /uL (0-25.8)
[2023-09-03 00:18] LABS: POTASSIUM 3.4 mmol/L (3.5-5.1)
[2023-09-03 00:20] LABS: CALCIUM 7.5 mg/dL (8.5-10.1)
[2023-09-03 00:21] LABS: ALBUMIN 2.1 g/dl (3.4-5.0); BLOOD UREA NITROGEN 21.3 mg/dL (7-18)
[2023-09-03 00:24] LABS: CREATININE 1.4 mg/dL (0.55-1.3)
[2023-09-03 00:26] LABS: BILIRUBIN,TOTAL 0.3 mg/dL (0.2-1)
[2023-09-03] MEDS: BANATROL PLUS POWDER PACKET PO SCH ×3 (06:13→21:17)
[2023-09-03] MEDS: INSULIN SLIDING SCALE (NOVOLOG) 1 VIAL SQ SCH ×4 (06:14→21:22)
[2023-09-03] MEDS: INSULIN (LEVEMIR) 100 UNITS/ML UNITS SQ SCH ×3 (06:14→22:00)
[2023-09-03 06:19] LABS: EOS % 1.7 % (0-4.5); HEMATOCRIT 30.5 % (35.4-49); HEMOGLOBIN 10.1 GM/dL (11.7-16.9); MCH 29.6 pg (25.7-33.7); MCHC 33.1 g/dl (32.0-35.9); MEAN CELL VOLUME 89.4 fl (80-96); MEAN PLT VOLUME 9.3 fl (7.5-11.1); MONO % 9.1 % (3.8-10.2); NEUT % 66.2 % (42.8-82.8); PLATELET COUNT 136 10^3/uL (134-434); RBC 3.42 M/mm3 (4.00-5.60); RDW 13.9 % (11.9-15.9); WHITE BLOOD COUNT 5.1 K/mm3 (4.0-10.0)
[2023-09-03 06:41] LABS: CALCIUM 7.6 mg/dL (8.5-10.1)
[2023-09-03 06:42] LABS: BLOOD UREA NITROGEN 18.6 mg/dL (7-18)
[2023-09-03 06:45] LABS: CREATININE 1.4 mg/dL (0.55-1.3)
[2023-09-03 06:47] LABS: BILIRUBIN,TOTAL 0.4 mg/dL (0.2-1); TOT PROT 4.8 g/dl (6.4-8.2)
[2023-09-03] MEDS: LYTES/YERBA SANTA 240 ML BOTTLE MM SCH (07:31)
[2023-09-03] MEDS ORDERED: REGADENOSON 0.4 MG/5 ML PRE-FILLED SYRINGE IVPUSH ONE (10:15)
[2023-09-03] MEDS ORDERED: POTASSIUM CHLORIDE ORAL LIQUID 20 MEQ/15 ML PO ONE (11:47)
[2023-09-03] MEDS: HEPARIN NA (PORCINE) 5,000 UNITS/ML 1ML VIAL SQ SCH ×2 (11:50→21:18)
[2023-09-03] MEDS: AMOXICILLIN 500 MG CAPSULE (FP) PO SCH ×2 (11:50→21:18)
[2023-09-03] MEDS: LACTOBACILLUS ACIDOPHILUS 1 TABLET PO SCH (11:50)
[2023-09-03] MEDS: NYSTATIN 100,000 UNIT/GM TOPICAL CREAM 15 GM TUBE TP SCH ×2 (11:52→21:17)
[2023-09-03] MEDS: KCL 10 MEQ IVPB 10 MEQ/100 ML INFUS.BAG IVPB SCH ×3 (12:23→14:21)
[2023-09-04] MEDS: BANATROL PLUS POWDER PACKET PO SCH ×3 (06:12→21:39)
[2023-09-04] MEDS: INSULIN (LEVEMIR) 100 UNITS/ML UNITS SQ SCH ×2 (06:13→21:40)
[2023-09-04] MEDS: LYTES/YERBA SANTA 240 ML BOTTLE MM SCH (06:55)
[2023-09-04] MEDS: INSULIN SLIDING SCALE (NOVOLOG) 1 VIAL SQ SCH ×4 (07:04→22:13)
[2023-09-04] MEDS: LACTOBACILLUS ACIDOPHILUS 1 TABLET PO SCH (09:15)
[2023-09-04] MEDS: NYSTATIN 100,000 UNIT/GM TOPICAL CREAM 15 GM TUBE TP SCH ×2 (10:25→21:41)
[2023-09-04] MEDS: HEPARIN NA (PORCINE) 5,000 UNITS/ML 1ML VIAL SQ SCH (21:39)
[2023-09-05] MEDS: INSULIN (LEVEMIR) 100 UNITS/ML UNITS SQ SCH ×2 (06:21→22:33)
[2023-09-05] MEDS: BANATROL PLUS POWDER PACKET PO SCH ×3 (06:21→22:19)
[2023-09-05] MEDS: INSULIN SLIDING SCALE (NOVOLOG) 1 VIAL SQ SCH ×4 (06:22→22:35)
[2023-09-05 06:59] VITALS: RESP 18
[2023-09-05 07:22] LABS: CHLORIDE 115 mmol/L (98-107); SODIUM 143 mmol/L (136-145)
[2023-09-05 07:28] LABS: CALCIUM 7.5 mg/dL (8.5-10.1)
[2023-09-05 07:29] LABS: ALBUMIN 2.1 g/dl (3.4-5.0); BLOOD UREA NITROGEN 13.2 mg/dL (7-18); CO2 22 mmol/L (21-32)
[2023-09-05 07:32] LABS: CREATININE 1.3 mg/dL (0.55-1.3); SGOT/AST 18 U/L (15-37); SGPT/ALT 28 U/L (13-61)
[2023-09-05 07:34] LABS: TOT PROT 5.1 g/dl (6.4-8.2)
[2023-09-05 07:35] LABS: ALK PHOS 39 U/L (45-117)
[2023-09-05 07:38] LABS: ANION GAP 6 mmol/L (4-13); BILIRUBIN,TOTAL 0.7 mg/dL (0.2-1); POTASSIUM 2.5 mmol/L (3.5-5.1)
[2023-09-05 07:56] LABS: GLUCOSE,RANDOM 80 mg/dL (74-106)
[2023-09-05] MEDS: LYTES/YERBA SANTA 240 ML BOTTLE MM SCH (09:28)
[2023-09-05] MEDS: LACTOBACILLUS ACIDOPHILUS 1 TABLET PO SCH (09:28)
[2023-09-05] MEDS: HEPARIN NA (PORCINE) 5,000 UNITS/ML 1ML VIAL SQ SCH ×2 (09:29→22:19)
[2023-09-05] MEDS: NYSTATIN 100,000 UNIT/GM TOPICAL CREAM 15 GM TUBE TP SCH ×2 (09:30→22:34)
[2023-09-05] MEDS: KCL 10 MEQ IVPB 10 MEQ/100 ML INFUS.BAG IVPB SCH ×3 (13:04→16:40)
[2023-09-05] MEDS: POTASSIUM CHLORIDE ORAL LIQUID 20 MEQ/15 ML PO SCH ×2 (13:04→22:19)
[2023-09-06] MEDS: BANATROL PLUS POWDER PACKET PO SCH ×3 (06:17→21:00)
[2023-09-06] MEDS: INSULIN (LEVEMIR) 100 UNITS/ML UNITS SQ SCH ×2 (06:17→21:18)
[2023-09-06] MEDS: INSULIN SLIDING SCALE (NOVOLOG) 1 VIAL SQ SCH ×4 (06:17→21:18)
[2023-09-06] MEDS: LYTES/YERBA SANTA 240 ML BOTTLE MM SCH (06:24)
[2023-09-06 07:20] LABS: BASO % 0.9 % (0-2.0); EOS % 1.5 % (0-4.5); LYMPH % 18.8 % (8-40); MCH 29.9 pg (25.7-33.7); MCHC 33.2 g/dl (32.0-35.9); MEAN CELL VOLUME 90.1 fl (80-96); MEAN PLT VOLUME 8.6 fl (7.5-11.1); MONO % 7.8 % (3.8-10.2); PLATELET COUNT 161 10^3/uL (134-434); RBC 3.32 M/mm3 (4.00-5.60); RDW 14.3 % (11.9-15.9); WHITE BLOOD COUNT 6.4 K/mm3 (4.0-10.0)
[2023-09-06 08:08] LABS: CHLORIDE 115 mmol/L (98-107); SODIUM 144 mmol/L (136-145)
[2023-09-06 08:12] LABS: ALBUMIN 2.1 g/dl (3.4-5.0); CALCIUM 7.6 mg/dL (8.5-10.1); CO2 23 mmol/L (21-32)
[2023-09-06 08:13] LABS: GLUCOSE,RANDOM 108 mg/dL (74-106); MAGNESIUM 1.7 mg/dL (1.8-2.4)
[2023-09-06 08:16] LABS: PHOSPHOROUS 1.8 mg/dL (2.5-4.9); SGOT/AST 20 U/L (15-37); SGPT/ALT 31 U/L (13-61)
[2023-09-06 08:17] LABS: CREATININE 1.3 mg/dL (0.55-1.3); TOT PROT 5.2 g/dl (6.4-8.2)
[2023-09-06 08:19] LABS: ALK PHOS 43 U/L (45-117)
[2023-09-06 08:30] LABS: ANION GAP 6 mmol/L (4-13); BILIRUBIN,TOTAL 0.2 mg/dL (0.2-1); POTASSIUM 2.9 mmol/L (3.5-5.1)
[2023-09-06] MEDS: NYSTATIN 100,000 UNIT/GM TOPICAL CREAM 15 GM TUBE TP SCH ×2 (10:00→21:00)
[2023-09-06] MEDS: LACTOBACILLUS ACIDOPHILUS 1 TABLET PO SCH (10:26)
[2023-09-06] MEDS: HEPARIN NA (PORCINE) 5,000 UNITS/ML 1ML VIAL SQ SCH ×2 (10:26→21:00)
[2023-09-06] MEDS: POTASSIUM CHLORIDE ORAL LIQUID 20 MEQ/15 ML PO SCH ×2 (10:26→21:00)
[2023-09-06] MEDS ORDERED: MAGNESIUM SULF 50% (8.12 MEQ/2 ML-1 GM VIAL) IVPB ONE (11:15)
[2023-09-06] MEDS: KCL 10 MEQ IVPB 10 MEQ/100 ML INFUS.BAG IVPB SCH ×3 (12:38→19:10)
[2023-09-06] MEDS ORDERED: MAGNESIUM SULF 50% (8.12 MEQ/2 ML-1 GM VIAL) ONE (12:42)
[2023-09-06] MEDS: NAPH,MB-DB/K PH,MBDB POWDER PACKET PO SCH ×2 (15:04→21:00)
[2023-09-06] MEDS ORDERED: KCL 10 MEQ IVPB 10 MEQ/100 ML INFUS.BAG IVPB SCH (16:45)
[2023-09-07] MEDS: INSULIN SLIDING SCALE (NOVOLOG) 1 VIAL SQ SCH ×3 (06:46→16:23)
[2023-09-07] MEDS: INSULIN (LEVEMIR) 100 UNITS/ML UNITS SQ SCH (06:46)
[2023-09-07] MEDS: NAPH,MB-DB/K PH,MBDB POWDER PACKET PO SCH ×3 (06:46→14:45)
[2023-09-07] MEDS: BANATROL PLUS POWDER PACKET PO SCH ×2 (06:46→14:45)
[2023-09-07] MEDS: LYTES/YERBA SANTA 240 ML BOTTLE MM SCH (06:54)
[2023-09-07 07:31] LABS: POTASSIUM 3.1 mmol/L (3.5-5.1)
[2023-09-07 07:35] LABS: CALCIUM 7.7 mg/dL (8.5-10.1)
[2023-09-07 07:36] LABS: BLOOD UREA NITROGEN 10.7 mg/dL (7-18); MAGNESIUM 1.8 mg/dL (1.8-2.4)
[2023-09-07 07:39] LABS: BILIRUBIN,TOTAL 0.2 mg/dL (0.2-1); CREATININE 1.2 mg/dL (0.55-1.3); PHOSPHOROUS 2.2 mg/dL (2.5-4.9); TOT PROT 5.1 g/dl (6.4-8.2)
[2023-09-07] MEDS: HEPARIN NA (PORCINE) 5,000 UNITS/ML 1ML VIAL SQ SCH ×2 (08:26→09:15)
[2023-09-07] MEDS: LACTOBACILLUS ACIDOPHILUS 1 TABLET PO SCH ×2 (08:26→09:15)
[2023-09-07] MEDS: POTASSIUM CHLORIDE ORAL LIQUID 20 MEQ/15 ML PO SCH ×2 (08:26→09:16)
[2023-09-07] MEDS: NYSTATIN 100,000 UNIT/GM TOPICAL CREAM 15 GM TUBE TP SCH (09:16)
[2023-09-07] MEDS ORDERED: REGADENOSON 0.4 MG/5 ML PRE-FILLED SYRINGE IVPUSH ONE (10:30)
[2023-09-07] MEDS ORDERED: POTASSIUM PHOSPHATE 30 MM in SODIUM CHLORIDE 500 ML IVPB ONE (14:00)
[2023-09-07 16:19] VITALS: BP 126/63; PULSE 66; TEMP 98.2
== END 2023-09-07 21:18 | DRG 871 ==
LOC: JER 17:51 → JERBED 22:04 → JICU 08-25 00:28 → J4W 08-28 00:58
PROVIDERS: ADMIT Internal Medicine Pulmonary Disease; ATTEND Internal Medicine
PROC: 05HM33Z Insertion of Infusion Device into Right Internal Jugular Vein, Percutaneous Approach (ICD-10-PCS; principal; 2023-08-25)
PROC: B543ZZA Ultrasonography of Right Jugular Veins, Guidance (ICD-10-PCS; 2023-08-25)
PROC: 4A133B1 Monitoring of Arterial Pressure, Peripheral, Percutaneous Approach (ICD-10-PCS; 2023-08-25)
PROC: 4A133J1 Monitoring of Arterial Pulse, Peripheral, Percutaneous Approach (ICD-10-PCS; 2023-08-25)
DX: A41.89 Other specified sepsis (principal); G92.8 Other toxic encephalopathy; R65.21 Severe sepsis with septic shock; E87.20 Acidosis, unspecified; M62.82 Rhabdomyolysis; N17.9 Acute kidney failure, unspecified; N39.0 Urinary tract infection, site not specified; K40.30 Unilateral inguinal hernia, with obstruction, without gangrene, not specified as recurrent; E87.0 Hyperosmolality and hypernatremia; N13.30 Unspecified hydronephrosis; K59.00 Constipation, unspecified; E11.42 Type 2 diabetes mellitus with diabetic polyneuropathy; I12.9 Hypertensive chronic kidney disease with stage 1 through stage 4 chronic kidney disease, or unspecified chronic kidney disease; E11.22 Type 2 diabetes mellitus with diabetic chronic kidney disease; N18.9 Chronic kidney disease, unspecified; B95.2 Enterococcus as the cause of diseases classified elsewhere; Z89.422 Acquired absence of other left toe(s); E87.6 Hypokalemia; I44.7 Left bundle-branch block, unspecified; R68.0 Hypothermia, not associated with low environmental temperature
CPT/HCPCS: 0241U-QW; 36415; 36600; 70450-TC; 71045-TC-FY; 72125-TC; 72170-TC-FY; 74176-TC; 76870-TC; 78452-TC; 80048; 80053; 80061; 81003; 82272; 82550; 82553; 82803; 82962; 83036; 83605; 83735; 83993; 84100; 84443; 84484; 85025; 85027; 85610; 85730; 86850; 86900; 86901; 87040; 87081; 87086; 87186; 87324; 87449; 87899; 93005; 93010; 93017; 93306-TC; 97116-GP; 97162-GP; 99285-25; A9502; G0480; J0475; J1644; J2785; J3490

== ENCOUNTER 2023-10-05 18:34 | Inpatient (IN) | payer OTHER, BC ==
[2023-10-05 20:06] LABS: VENOUS BASE EXCESS -7.6 mmol/L (-2-2); VENOUS O2 SATURATION 53.5 % (70-80); VENOUS PCO2 38.1 mmHg (38-52); VENOUS PH 7.297 (7.310-7.410)
[2023-10-05] MEDS: LACTATED RINGERS SOLUTION 1000 ML INFUS.BAG IV ONE ×2 (20:10→23:30)
[2023-10-05 20:16] LABS: BASO % 0.2 % (0-2.0); EOS % 0.1 % (0-4.5); HEMATOCRIT 35.9 % (35.4-49); HEMOGLOBIN 11.2 GM/dL (11.7-16.9); LYMPH % 6.9 % (8-40); MCH 27.9 pg (25.7-33.7); MCHC 31.1 g/dl (32.0-35.9); MEAN CELL VOLUME 89.9 fl (80-96); MEAN PLT VOLUME 9.3 fl (7.5-11.1); MONO % 5.6 % (3.8-10.2); NEUT % 87.2 % (42.8-82.8); PLATELET COUNT 334 10^3/uL (134-434); RDW 15.8 % (11.9-15.9); WHITE BLOOD COUNT 20.1 K/mm3 (4.0-10.0)
[2023-10-05 20:21] LABS: INR 1.22 (0.83-1.09); PROTHROMBIN TIME (PATIENT) 14.1 SEC (9.7-13.0)
[2023-10-05 20:24] LABS: ACTIVATED PTT 25.5 SECONDS (25.2-36.5)
[2023-10-05 20:26] LABS: POTASSIUM 3.9 mmol/L (3.5-5.1)
[2023-10-05 20:28] LABS: ALBUMIN 2.2 g/dl (3.4-5.0); BLOOD UREA NITROGEN 75.6 mg/dL (7-18)
[2023-10-05 20:30] LABS: CREATININE 3.3 mg/dL (0.55-1.3)
[2023-10-05 20:33] LABS: BILIRUBIN,TOTAL 0.7 mg/dL (0.2-1); TOT PROT 7.3 g/dl (6.4-8.2)
[2023-10-05] MEDS ORDERED: ACETAMINOPHEN INJECTION 100 ML IVPB ONE (20:38)
[2023-10-05] MEDS ORDERED: VANCOMYCIN 1 GRAM (PRE-DOCKED) 1,000 MG/250 ML BAG IVPB ONE (20:38)
[2023-10-05] MEDS ORDERED: PIPERACILLIN/TAZOB 4.5 GM 4.5 GM/100 ML BAG IVPB ONE (20:38)
[2023-10-05] MEDS: PIPERACILLIN/TAZOB 4.5 GM 4.5 GM in DEXTROSE 5%-WATER 100 ML IVPB ONE (20:40)
[2023-10-05 22:09] LABS: EPI CELLS 7 /uL (0-25.1); HYALINE CASTS 8 /uL (0-3.1); PH,URINE 5.5 (5.0-8.0); URINE APPEARANCE TURBID; URINE BACTERIA 4672 /uL (0-1359); URINE BILIRUBIN 1+ (NEGATIVE); URINE COLOR ORANGE; URINE GLUCOSE (UA) NEGATIVE (NEGATIVE); URINE KETONE TRACE (NEGATIVE); URINE LEUK ESTERASE 3+ (NEGATIVE); URINE NITRITE NEGATIVE (NEGATIVE); URINE PROTEIN 3+ (NEGATIVE); URINE RBC 2557 /uL (0-23.9); URINE WBC 3303 /uL (0-25.8)
[2023-10-05] MEDS: ACETAMINOPHEN 1000 MG/100 ML BAG IVPB ONE (22:28)
[2023-10-05] MEDS ORDERED: PANTOPRAZOLE SODIUM 40 MG VIAL ONE (22:56)
[2023-10-05] MEDS: PANTOPRAZOLE SODIUM 40 MG VIAL IVPUSH ONE (23:30)
[2023-10-05] MEDS: VANCOMYCIN 1,000 MG in DEXTROSE 5%-WATER - 250 ML IVPB ONE (23:36)
[2023-10-06] MEDS ORDERED: PIPERACILLIN/TAZOB 2.25 GM 2.25 GM/50 ML BAG IVPB ONE ×2 (02:56→12:15)
[2023-10-06] MEDS: SODIUM CHLORIDE 1,000 ML IV SCH (03:10)
[2023-10-06] MEDS: PIPERACILLIN/TAZOB 2.25 GM 2.25 GM in DEXTROSE 5%-WATER - 50 ML IVPB SCH ×2 (03:10→05:46)
[2023-10-06 06:53] LABS: HEMOGLOBIN 10.3 GM/dL (11.7-16.9); MCH 28.2 pg (25.7-33.7); MCHC 31.3 g/dl (32.0-35.9); MEAN CELL VOLUME 89.9 fl (80-96); MEAN PLT VOLUME 9.2 fl (7.5-11.1); PLATELET COUNT 303 10^3/uL (134-434); RBC 3.67 M/mm3 (4.00-5.60); RDW 15.9 % (11.9-15.9); WHITE BLOOD COUNT 16.6 K/mm3 (4.0-10.0)
[2023-10-06] MEDS: INSULIN ASPART SLIDING SCALE (NOVOLOG) 1 VIAL SQ SCH (07:15)
[2023-10-06 07:16] LABS: POTASSIUM 3.1 mmol/L (3.5-5.1)
[2023-10-06 07:25] LABS: CALCIUM 8.3 mg/dL (8.5-10.1)
[2023-10-06 07:26] LABS: BLOOD UREA NITROGEN 75.3 mg/dL (7-18); MAGNESIUM 2.3 mg/dL (1.8-2.4)
[2023-10-06 07:28] LABS: CREATININE 3.1 mg/dL (0.55-1.3)
[2023-10-06 07:29] LABS: PHOSPHOROUS 5.4 mg/dL (2.5-4.9)
[2023-10-06 07:30] LABS: TOT PROT 6.4 g/dl (6.4-8.2)
[2023-10-06] MEDS ORDERED: ACETAMINOPHEN 1000 MG/100 ML BAG IVPB PRN (07:35)
[2023-10-06 07:40] LABS: BILIRUBIN,TOTAL 0.5 mg/dL (0.2-1)
[2023-10-06] MEDS ORDERED: LATANOPROST 0.005% OPHTH SOLN 2.5ML BOTTLE OU SCH (10:00)
[2023-10-06] MEDS: MAG HYDROX/AL HYDROX/SIMETH 30 ML UNIT-DOSE CUP PO ONE (12:11)
[2023-10-06] MEDS ORDERED: POTASSIUM CHLORIDE TABS 20 MEQ TABLET.ER (FP) PO ONE (12:14)
[2023-10-06] MEDS ORDERED: CARVEDILOL 25 MG TABLET (FP) ONE (12:14)
[2023-10-06] MEDS: PANTOPRAZOLE SODIUM 40 MG VIAL IVPUSH SCH (12:15)
[2023-10-06] MEDS: CARVEDILOL 25 MG TABLET (FP) PO SCH (12:15)
[2023-10-06] MEDS: POTASSIUM CHLORIDE TABS 20 MEQ TABLET.ER (FP) PO ONE (12:15)
[2023-10-06] MEDS ORDERED: MAG HYDROX/AL HYDROX/SIMETH 30 ML UNIT-DOSE CUP ONE (12:15)
[2023-10-06] MEDS: BRIMONIDINE TARTRATE 0.2% OPHTHALMIC 5 ML BOTTLE OU SCH (12:35)
[2023-10-06] MEDS: LATANOPROST 0.005% OPHTH SOLN 2.5ML BOTTLE OU SCH (22:40)
[2023-10-07] MEDS: PIPERACILLIN/TAZOB 3.375 GM 3.375 GM in DEXTROSE 5%-WATER - 50 ML IVPB SCH (02:43)
[2023-10-07 10:15] LABS: BASO % 0.5 % (0-2.0); EOS % 0.5 % (0-4.5); HEMATOCRIT 30.6 % (35.4-49); HEMOGLOBIN 9.8 GM/dL (11.7-16.9); LYMPH % 9.3 % (8-40); MCH 28.9 pg (25.7-33.7); MCHC 31.9 g/dl (32.0-35.9); MEAN CELL VOLUME 90.4 fl (80-96); MONO % 5.9 % (3.8-10.2); NEUT % 83.8 % (42.8-82.8); PLATELET COUNT 290 10^3/uL (134-434); RBC 3.39 M/mm3 (4.00-5.60); RDW 16.6 % (11.9-15.9); WHITE BLOOD COUNT 10.6 K/mm3 (4.0-10.0)
[2023-10-07 10:21] LABS: POTASSIUM 3.6 mmol/L (3.5-5.1)
[2023-10-07 10:24] LABS: ALBUMIN 1.8 g/dl (3.4-5.0); BLOOD UREA NITROGEN 63.6 mg/dL (7-18); CALCIUM 7.7 mg/dL (8.5-10.1)
[2023-10-07 10:26] LABS: MAGNESIUM 2.6 mg/dL (1.8-2.4)
[2023-10-07 10:29] LABS: CREATININE 2.7 mg/dL (0.55-1.3)
[2023-10-07 10:30] LABS: BILIRUBIN,TOTAL 0.5 mg/dL (0.2-1); TOT PROT 6.1 g/dl (6.4-8.2)
[2023-10-07] MEDS: SODIUM CHLORIDE 0.45% 1,000 ML IV SCH (15:53)
[2023-10-07] MEDS: CEFTRIAXONE 2 GM in DEXTROSE 5%-WATER 100 ML IVPB SCH (18:02)
[2023-10-07] MEDS: CYCLOBENZAPRINE HCL 5 MG TABLET PO STA (19:00)
[2023-10-08] MEDS: LORazepam 1 MG TABLET PO PRN (01:44)
[2023-10-08 10:05] LABS: BASO % 0.5 % (0-2.0); EOS % 1.8 % (0-4.5); HEMATOCRIT 28.4 % (35.4-49); HEMOGLOBIN 8.9 GM/dL (11.7-16.9); LYMPH % 12.2 % (8-40); MCH 28.8 pg (25.7-33.7); MCHC 31.5 g/dl (32.0-35.9); MEAN CELL VOLUME 91.3 fl (80-96); MONO % 7.1 % (3.8-10.2); NEUT % 78.4 % (42.8-82.8); PLATELET COUNT 248 10^3/uL (134-434); RBC 3.11 M/mm3 (4.00-5.60); RDW 16.4 % (11.9-15.9); WHITE BLOOD COUNT 9.7 K/mm3 (4.0-10.0)
[2023-10-08 10:34] LABS: POTASSIUM 3.3 mmol/L (3.5-5.1)
[2023-10-08] MEDS: MAG HYDROX/AL HYDROX/SIMETH 30 ML UNIT-DOSE CUP PO PRN (10:48)
[2023-10-08 10:58] LABS: CALCIUM 7.2 mg/dL (8.5-10.1)
[2023-10-08 10:59] LABS: ALBUMIN 1.6 g/dl (3.4-5.0); BLOOD UREA NITROGEN 49.6 mg/dL (7-18); MAGNESIUM 2.3 mg/dL (1.8-2.4)
[2023-10-08 11:02] LABS: CREATININE 2.1 mg/dL (0.55-1.3)
[2023-10-08 11:03] LABS: BILIRUBIN,TOTAL 0.3 mg/dL (0.2-1); TOT PROT 5.5 g/dl (6.4-8.2)
[2023-10-08] MEDS: POTASSIUM CHLORIDE ORAL LIQUID 20 MEQ/15 ML PO ONE (17:50)
[2023-10-08] MEDS: SODIUM BICARBONATE 650 MG TABLET PO ONE (17:50)
[2023-10-08] MEDS: POTASSIUM CHLORIDE 10 MEQ in SODIUM CHLORIDE 0.45% 1,000 ML IV SCH (18:34)
[2023-10-09] MEDS: ACETAMINOPHEN 325 MG TABLET (FP) PO ONE (05:54)
[2023-10-09] MEDS ORDERED: INSULIN (LEVEMIR) 100 UNITS/ML UNITS SQ ONE (06:20)
[2023-10-09] MEDS: IRON SUCROSE INJECTION 200 MG in SODIUM CHLORIDE 90 ML IVPB ONE (10:04)
[2023-10-09 10:27] LABS: BASO % 0.6 % (0-2.0); EOS % 2.3 % (0-4.5); HEMATOCRIT 29.3 % (35.4-49); HEMOGLOBIN 9.2 GM/dL (11.7-16.9); LYMPH % 13.7 % (8-40); MCH 28.1 pg (25.7-33.7); MCHC 31.4 g/dl (32.0-35.9); MEAN CELL VOLUME 89.5 fl (80-96); MONO % 7.3 % (3.8-10.2); NEUT % 76.1 % (42.8-82.8); PLATELET COUNT 246 10^3/uL (134-434); RBC 3.27 M/mm3 (4.00-5.60); RDW 15.7 % (11.9-15.9); WHITE BLOOD COUNT 8.8 K/mm3 (4.0-10.0)
[2023-10-09 10:42] LABS: POTASSIUM 3.5 mmol/L (3.5-5.1)
[2023-10-09 10:47] LABS: CALCIUM 7.3 mg/dL (8.5-10.1)
[2023-10-09 10:48] LABS: ALBUMIN 1.7 g/dl (3.4-5.0)
[2023-10-09 10:51] LABS: CREATININE 1.8 mg/dL (0.55-1.3)
[2023-10-09 10:52] LABS: BILIRUBIN,TOTAL 0.3 mg/dL (0.2-1); TOT PROT 5.7 g/dl (6.4-8.2)
[2023-10-09] MEDS: SODIUM CHLORIDE 0.45%/POT 20 MEQ/1,000 ML INFUS.BAG IV SCH (17:15)
[2023-10-10 10:42] LABS: POTASSIUM 3.7 mmol/L (3.5-5.1)
[2023-10-10 10:51] LABS: ALBUMIN 1.6 g/dl (3.4-5.0); CALCIUM 7.3 mg/dL (8.5-10.1)
[2023-10-10 10:52] LABS: BLOOD UREA NITROGEN 21.7 mg/dL (7-18)
[2023-10-10 10:54] LABS: CREATININE 1.5 mg/dL (0.55-1.3)
[2023-10-10 10:55] LABS: TOT PROT 5.3 g/dl (6.4-8.2)
[2023-10-10 10:56] LABS: BILIRUBIN,TOTAL 0.2 mg/dL (0.2-1)
[2023-10-10 11:00] LABS: BASO % 0.5 % (0-2.0); EOS % 2.1 % (0-4.5); HEMATOCRIT 27.8 % (35.4-49); HEMOGLOBIN 9.2 GM/dL (11.7-16.9); MCH 29.2 pg (25.7-33.7); MCHC 32.9 g/dl (32.0-35.9); MEAN CELL VOLUME 88.6 fl (80-96); MEAN PLT VOLUME 9.1 fl (7.5-11.1); MONO % 7.5 % (3.8-10.2); NEUT % 75.9 % (42.8-82.8); PLATELET COUNT 208 10^3/uL (134-434); RBC 3.14 M/mm3 (4.00-5.60); RDW 15.6 % (11.9-15.9); WHITE BLOOD COUNT 8.1 K/mm3 (4.0-10.0)
[2023-10-11 09:30] LABS: POTASSIUM 3.4 mmol/L (3.5-5.1)
[2023-10-11 09:45] LABS: CALCIUM 7.7 mg/dL (8.5-10.1)
[2023-10-11 09:46] LABS: BLOOD UREA NITROGEN 18.4 mg/dL (7-18)
[2023-10-11 09:49] LABS: CREATININE 1.5 mg/dL (0.55-1.3)
[2023-10-11 09:50] LABS: BILIRUBIN,TOTAL 0.3 mg/dL (0.2-1); TOT PROT 6.1 g/dl (6.4-8.2)
[2023-10-11] MEDS: INSULIN (NOVOLOG MIX 70/30) 100 UNITS/ML MDV SQ SCH (12:19)
[2023-10-11] MEDS: POTASSIUM CHLORIDE ORAL LIQUID 20 MEQ/15 ML PO ONE (17:09)
[2023-10-11] MEDS: PANTOPRAZOLE 40 MG TABLET PO SCH (21:35)
[2023-10-12 09:28] LABS: EPI CELLS 15 /uL (0-25.1); HYALINE CASTS 1 /uL (0-3.1); PH,URINE 5.5 (5.0-8.0); URINE APPEARANCE CLEAR; URINE BACTERIA 7 /uL (0-1359); URINE BILIRUBIN NEGATIVE (NEGATIVE); URINE COLOR YELLOW; URINE GLUCOSE (UA) NEGATIVE (NEGATIVE); URINE KETONE NEGATIVE (NEGATIVE); URINE LEUK ESTERASE TRACE (NEGATIVE); URINE NITRITE NEGATIVE (NEGATIVE); URINE PROTEIN 1+ (NEGATIVE); URINE RBC 38 /uL (0-23.9); URINE UROBILINOGEN 0.2 mg/dL (0.2-1.0); URINE WBC 79 /uL (0-25.8)
[2023-10-12 10:37] LABS: BASO % 0.9 % (0-2.0); EOS % 1.7 % (0-4.5); HEMOGLOBIN 9.5 GM/dL (11.7-16.9); LYMPH % 13.8 % (8-40); MCH 28.5 pg (25.7-33.7); MCHC 31.8 g/dl (32.0-35.9); MEAN CELL VOLUME 89.8 fl (80-96); MEAN PLT VOLUME 9.9 fl (7.5-11.1); MONO % 6.8 % (3.8-10.2); NEUT % 76.8 % (42.8-82.8); PLATELET COUNT 222 10^3/uL (134-434); RBC 3.34 M/mm3 (4.00-5.60); RDW 15.9 % (11.9-15.9); WHITE BLOOD COUNT 11.1 K/mm3 (4.0-10.0)
[2023-10-12 10:48] LABS: POTASSIUM 3.6 mmol/L (3.5-5.1)
[2023-10-12 10:54] LABS: CALCIUM 7.9 mg/dL (8.5-10.1)
[2023-10-12 10:55] LABS: ALBUMIN 1.8 g/dl (3.4-5.0); BLOOD UREA NITROGEN 22.3 mg/dL (7-18)
[2023-10-12 10:58] LABS: CREATININE 1.6 mg/dL (0.55-1.3)
[2023-10-12 10:59] LABS: BILIRUBIN,TOTAL 0.3 mg/dL (0.2-1); TOT PROT 5.9 g/dl (6.4-8.2)
[2023-10-12] MEDS: DEXTROSE 5%-0.45% SALINE 1,000 ML IV SCH (22:30)
[2023-10-13 10:40] LABS: BASO % 0.8 % (0-2.0); EOS % 1.6 % (0-4.5); HEMATOCRIT 27.3 % (35.4-49); HEMOGLOBIN 8.8 GM/dL (11.7-16.9); LYMPH % 13.9 % (8-40); MCH 28.7 pg (25.7-33.7); MCHC 32.3 g/dl (32.0-35.9); MEAN CELL VOLUME 88.7 fl (80-96); MEAN PLT VOLUME 9.5 fl (7.5-11.1); MONO % 8.8 % (3.8-10.2); NEUT % 74.9 % (42.8-82.8); PLATELET COUNT 176 10^3/uL (134-434); RBC 3.08 M/mm3 (4.00-5.60); RDW 15.7 % (11.9-15.9); WHITE BLOOD COUNT 8.7 K/mm3 (4.0-10.0)
[2023-10-13 10:53] LABS: POTASSIUM 3.2 mmol/L (3.5-5.1)
[2023-10-13 10:56] LABS: CALCIUM 7.5 mg/dL (8.5-10.1)
[2023-10-13 10:57] LABS: ALBUMIN 1.7 g/dl (3.4-5.0); BLOOD UREA NITROGEN 20.2 mg/dL (7-18)
[2023-10-13 11:00] LABS: CREATININE 1.6 mg/dL (0.55-1.3)
[2023-10-13 11:01] LABS: BILIRUBIN,TOTAL 0.4 mg/dL (0.2-1); TOT PROT 5.2 g/dl (6.4-8.2)
[2023-10-13] MEDS ORDERED: LIDOCAINE HCL/PF 2% SDV 5ML VIAL ONE ×2 (13:03→15:32)
[2023-10-13] MEDS ORDERED: PROPOFOL 20 ML ONE (13:03)
[2023-10-13] MEDS ORDERED: MIDAZOLAM HCL 2 MG/2 ML SINGLE DOSE VIAL ONE ×2 (13:04→15:47)
[2023-10-13] MEDS ORDERED: ACETAMINOPHEN INJECTION 100 ML IVPB ONE (13:04)
[2023-10-13] MEDS ORDERED: ceFAZolin SODIUM 1 GM VIAL ONE (14:34)
[2023-10-13] MEDS ORDERED: SODIUM CHLORIDE 0.9% P/F 10 ML VIAL IJ ONE ×2 (14:34→15:32)
[2023-10-13] MEDS ORDERED: KETOROLAC TROMETHAMINE 30 MG/1 ML VIAL ONE (14:38)
[2023-10-13] MEDS ORDERED: ONDANSETRON 4 MG/2 ML VIAL ONE (15:32)
[2023-10-13] MEDS ORDERED: DEXAMETHASONE SOD PHOSPHATE 4 MG/1 ML VIAL ONE (15:32)
[2023-10-13] MEDS ORDERED: ALBUMIN HUMAN 5% 500 ML IV SOLUTION IV ONE (16:15)
[2023-10-13] MEDS: ALBUMIN HUMAN 5% 500 ML IV SOLUTION IV ONE ×2 (16:40→17:30)
[2023-10-13] MEDS ORDERED: LACTATED RINGERS SOLUTION 1,000 ML IV SCH (17:00)
[2023-10-13] MEDS ORDERED: MAG HYDROX/AL HYDROX/SIMETH 30 ML UNIT-DOSE CUP PO PRN (17:12)
[2023-10-13] MEDS: DEXTROSE 5%-0.45% SALINE 1,000 ML IV SCH (18:22)
[2023-10-13] MEDS: KCL 10 MEQ IVPB 10 MEQ/100 ML INFUS.BAG IVPB SCH ×2 (18:39→20:02)
[2023-10-13] MEDS: CARVEDILOL 25 MG TABLET (FP) PO SCH (21:45)
[2023-10-13] MEDS: INSULIN ASPART SLIDING SCALE (NOVOLOG) 1 VIAL SQ SCH (21:45)
[2023-10-13] MEDS: PANTOPRAZOLE 40 MG TABLET PO SCH (21:45)
[2023-10-13] MEDS: BRIMONIDINE TARTRATE 0.2% OPHTHALMIC 5 ML BOTTLE OU SCH (21:47)
[2023-10-13] MEDS: LATANOPROST 0.005% OPHTH SOLN 2.5ML BOTTLE OU SCH (21:48)
[2023-10-14 09:25] LABS: BASO % 0.5 % (0-2.0); EOS % 1.6 % (0-4.5); HEMATOCRIT 29.4 % (35.4-49); HEMOGLOBIN 9.4 GM/dL (11.7-16.9); LYMPH % 10.9 % (8-40); MCH 28.5 pg (25.7-33.7); MCHC 31.8 g/dl (32.0-35.9); MEAN CELL VOLUME 89.4 fl (80-96); MEAN PLT VOLUME 9.9 fl (7.5-11.1); MONO % 7.7 % (3.8-10.2); NEUT % 79.3 % (42.8-82.8); PLATELET COUNT 206 10^3/uL (134-434); RBC 3.29 M/mm3 (4.00-5.60); RDW 15.9 % (11.9-15.9); WHITE BLOOD COUNT 9.4 K/mm3 (4.0-10.0)
[2023-10-14 10:04] LABS: CREATININE 1.5 mg/dL (0.55-1.3)
[2023-10-14 10:06] LABS: BILIRUBIN,TOTAL 0.2 mg/dL (0.2-1); TOT PROT 5.9 g/dl (6.4-8.2)
[2023-10-14 10:09] LABS: CALCIUM 7.7 mg/dL (8.5-10.1)
[2023-10-14 10:10] LABS: BLOOD UREA NITROGEN 18.5 mg/dL (7-18)
[2023-10-14 10:12] LABS: ALBUMIN 2.2 g/dl (3.4-5.0)
[2023-10-14] MEDS: CEFTRIAXONE 2 GM in DEXTROSE 5%-WATER 100 ML IVPB SCH (10:30)
[2023-10-14] MEDS: INSULIN (NOVOLOG MIX 70/30) 100 UNITS/ML MDV SQ SCH (10:42)
[2023-10-14] MEDS: KCL 10 MEQ IVPB 10 MEQ/100 ML INFUS.BAG IVPB SCH (15:59)
[2023-10-14] MEDS: POTASSIUM CHLORIDE ORAL LIQUID 20 MEQ/15 ML PO ONE (15:59)
[2023-10-14] MEDS: PEG 3350/NA SULF BICARB CL/KCL 4000 ML SOLN.RECON PO ONE (16:54)
[2023-10-14] MEDS ORDERED: PEG 3350/NA SULF BICARB CL/KCL 4000 ML SOLN.RECON PO ONE (17:00)
[2023-10-15 10:59] LABS: BASO % 1.2 % (0-2.0); EOS % 2.3 % (0-4.5); HEMATOCRIT 26.8 % (35.4-49); HEMOGLOBIN 8.7 GM/dL (11.7-16.9); LYMPH % 19.3 % (8-40); MCHC 32.6 g/dl (32.0-35.9); MEAN CELL VOLUME 88.9 fl (80-96); MEAN PLT VOLUME 9.3 fl (7.5-11.1); MONO % 10.2 % (3.8-10.2); PLATELET COUNT 193 10^3/uL (134-434); RBC 3.02 M/mm3 (4.00-5.60); RDW 15.8 % (11.9-15.9)
[2023-10-15 11:06] LABS: INR 1.23 (0.83-1.09); PROTHROMBIN TIME (PATIENT) 14.2 SEC (9.7-13.0)
[2023-10-15 11:24] LABS: POTASSIUM 3.3 mmol/L (3.5-5.1)
[2023-10-15 11:30] LABS: CALCIUM 8.1 mg/dL (8.5-10.1)
[2023-10-15 11:31] LABS: BLOOD UREA NITROGEN 11.9 mg/dL (7-18)
[2023-10-15 11:35] LABS: CREATININE 1.3 mg/dL (0.55-1.3)
[2023-10-15] MEDS: POTASSIUM CHLORIDE ORAL LIQUID 20 MEQ/15 ML PO ONE (17:01)
[2023-10-16 09:12] LABS: BASO % 1.2 % (0-2.0); EOS % 2.2 % (0-4.5); HEMATOCRIT 28.8 % (35.4-49); HEMOGLOBIN 9.5 GM/dL (11.7-16.9); MEAN PLT VOLUME 9.3 fl (7.5-11.1); MONO % 8.5 % (3.8-10.2); NEUT % 67.1 % (42.8-82.8); PLATELET COUNT 223 10^3/uL (134-434); RBC 3.28 M/mm3 (4.00-5.60); RDW 16.3 % (11.9-15.9)
[2023-10-16 10:03] LABS: POTASSIUM 3.1 mmol/L (3.5-5.1)
[2023-10-16 10:05] LABS: BLOOD UREA NITROGEN 10.3 mg/dL (7-18); CALCIUM 8.1 mg/dL (8.5-10.1)
[2023-10-16 10:08] LABS: CREATININE 1.3 mg/dL (0.55-1.3)
[2023-10-16 10:10] LABS: BILIRUBIN,TOTAL 0.3 mg/dL (0.2-1); TOT PROT 5.9 g/dl (6.4-8.2)
[2023-10-16] MEDS ORDERED: INSULIN (NOVOLOG MIX 70/30) 100 UNITS/ML MDV SQ ONE (11:44)
[2023-10-16] MEDS: POTASSIUM CHLORIDE ORAL LIQUID 20 MEQ/15 ML PO ONE (19:55)
[2023-10-17 09:52] LABS: POTASSIUM 3.3 mmol/L (3.5-5.1)
[2023-10-17 10:19] LABS: BLOOD UREA NITROGEN 11.9 mg/dL (7-18); MAGNESIUM 1.6 mg/dL (1.8-2.4)
[2023-10-17 10:21] LABS: CREATININE 1.4 mg/dL (0.55-1.3)
[2023-10-17] MEDS: VITAMIN B COMP W-C 1 EA TABLET (NEPHRO-VITE) PO SCH (10:39)
[2023-10-17] MEDS: POTASSIUM CHLORIDE ORAL LIQUID 20 MEQ/15 ML PO ONE (11:49)
[2023-10-17] MEDS: MAGNESIUM SULF 50% (8.12 MEQ/2 ML-1 GM VIAL) IVPB ONE (16:01)
[2023-10-18] MEDS ORDERED: INSULIN ASPART SLIDING SCALE (NOVOLOG) 1 VIAL SQ ONE (06:22)
[2023-10-18] MEDS ORDERED: INSULIN (LEVEMIR) 100 UNITS/ML UNITS SQ ONE (06:22)
[2023-10-18] MEDS ORDERED: BUPIVACAINE HCL/PF 0.25% (2.5MG/ML) 10 ML VIAL ONE (10:16)
[2023-10-18] MEDS: MAGNESIUM SULF 50% (8.12 MEQ/2 ML-1 GM VIAL) IVPB ONE (10:24)
[2023-10-18] MEDS ORDERED: ONDANSETRON 4 MG/2 ML VIAL IVPUSH PRN (10:29)
[2023-10-18] MEDS ORDERED: LIDOCAINE HCL/PF 2% SDV 5ML VIAL ONE (10:45)
[2023-10-18] MEDS ORDERED: ROCURONIUM BROMIDE 50 MG/5 ML SYRINGE ONE ×3 (10:46→13:22)
[2023-10-18] MEDS ORDERED: MIDAZOLAM HCL 2 MG/2 ML SINGLE DOSE VIAL ONE (10:46)
[2023-10-18] MEDS ORDERED: SUCCINYLCHOLINE CHLORIDE 200 MG/10 ML SYRINGE ONE (10:46)
[2023-10-18] MEDS ORDERED: PROPOFOL 20 ML ONE (10:46)
[2023-10-18] MEDS: LACTATED RINGERS SOLUTION 1,000 ML IV SCH ×3 (11:01→18:29)
[2023-10-18 11:19] LABS: HEMATOCRIT 25.4 % (35.4-49); HEMOGLOBIN 8.5 GM/dL (11.7-16.9); MCH 29.3 pg (25.7-33.7); MCHC 33.4 g/dl (32.0-35.9); MEAN CELL VOLUME 87.6 fl (80-96); PLATELET COUNT 217 10^3/uL (134-434); RDW 15.7 % (11.9-15.9)
[2023-10-18] MEDS: HEPARIN NA (PORCINE) 5,000 UNITS/ML 1ML VIAL SQ ONE (11:19)
[2023-10-18] MEDS: cefOXitin SODIUM 2 GM VIAL (RESTRICTED TO ID) IVPB ONE (11:30)
[2023-10-18 11:57] LABS: POTASSIUM 3.4 mmol/L (3.5-5.1)
[2023-10-18 12:09] LABS: BLOOD UREA NITROGEN 14.1 mg/dL (7-18); CREATININE 1.5 mg/dL (0.55-1.3); MAGNESIUM 1.7 mg/dL (1.8-2.4); PHOSPHOROUS 2.2 mg/dL (2.5-4.9); TOT PROT 5.5 g/dl (6.4-8.2)
[2023-10-18 12:13] LABS: BILIRUBIN,TOTAL 0.3 mg/dL (0.2-1)
[2023-10-18] MEDS ORDERED: ePHEDrine SULFATE 50 MG/1 ML AMPULE ONE (12:55)
[2023-10-18] MEDS ORDERED: SUGAMMADEX SODIUM 200 MG/2 ML VIAL ONE ×2 (14:37→16:08)
[2023-10-18] MEDS ORDERED: ONDANSETRON 4 MG/2 ML VIAL ONE ×2 (14:37→17:25)
[2023-10-18] MEDS: BUPIVACAINE HCL/PF 2.5 MG/ML - 30 ML VIAL IJ ONE (16:24)
[2023-10-18] MEDS ORDERED: oxyCODONE HCL 5 MG TABLET PO PRN ×4 (16:57→17:38)
[2023-10-18] MEDS: ONDANSETRON 4 MG/2 ML VIAL IVPUSH PRN (17:25)
[2023-10-18] MEDS ORDERED: LACTATED RINGERS SOLUTION 1,000 ML/1,000 ML INFUS.BAG IV SCH (17:30)
[2023-10-18] MEDS: POTASSIUM CHLORIDE ORAL LIQUID 20 MEQ/15 ML PO ONE (18:26)
[2023-10-18] MEDS: MAGNESIUM OXIDE 400 MG TABLET (FP) PO ONE ×2 (18:26→18:29)
[2023-10-18] MEDS ORDERED: POTASSIUM CHLORIDE ORAL LIQUID 20 MEQ/15 ML PO ONE (18:30)
[2023-10-18] MEDS ORDERED: MAGNESIUM OXIDE 400 MG TABLET (FP) PO ONE (18:30)
[2023-10-18] MEDS ORDERED: CARVEDILOL 25 MG TABLET (FP) PO SCH (22:00)
[2023-10-18] MEDS ORDERED: PANTOPRAZOLE 40 MG TABLET PO SCH (22:00)
[2023-10-18] MEDS ORDERED: INSULIN ASPART SLIDING SCALE (NOVOLOG) 1 VIAL SQ SCH (22:00)
[2023-10-18] MEDS ORDERED: BRIMONIDINE TARTRATE 0.2% OPHTHALMIC 5 ML BOTTLE OU SCH (22:00)
[2023-10-18] MEDS ORDERED: LATANOPROST 0.005% OPHTH SOLN 2.5ML BOTTLE OU SCH (22:00)
[2023-10-18] MEDS ORDERED: DOCUSATE SODIUM 100 MG CAPSULE (FP) PO SCH (22:00)
[2023-10-18] MEDS: DOCUSATE SODIUM 100 MG CAPSULE (FP) PO SCH (22:09)
[2023-10-18] MEDS: PANTOPRAZOLE 40 MG TABLET PO SCH (22:09)
[2023-10-18] MEDS: CARVEDILOL 25 MG TABLET (FP) PO SCH (22:10)
[2023-10-18] MEDS: INSULIN ASPART SLIDING SCALE (NOVOLOG) 1 VIAL SQ SCH (22:10)
[2023-10-18] MEDS: LATANOPROST 0.005% OPHTH SOLN 2.5ML BOTTLE OU SCH (22:11)
[2023-10-18] MEDS: BRIMONIDINE TARTRATE 0.2% OPHTHALMIC 5 ML BOTTLE OU SCH (22:11)
[2023-10-18] MEDS: ACETAMINOPHEN 1000 MG/100 ML BAG IVPB SCH (22:12)
[2023-10-18] MEDS ORDERED: ACETAMINOPHEN 1000 MG/100 ML BAG IVPB SCH (22:30)
[2023-10-19] MEDS: VITAMIN B COMP W-C 1 EA TABLET (NEPHRO-VITE) PO SCH (09:18)
[2023-10-19 09:36] LABS: BASO % 0.7 % (0-2.0); EOS % 0.4 % (0-4.5); HEMATOCRIT 25.8 % (35.4-49); HEMOGLOBIN 8.7 GM/dL (11.7-16.9); LYMPH % 16.2 % (8-40); MCH 29.7 pg (25.7-33.7); MCHC 33.8 g/dl (32.0-35.9); MEAN CELL VOLUME 87.8 fl (80-96); MONO % 9.2 % (3.8-10.2); NEUT % 73.5 % (42.8-82.8); PLATELET COUNT 220 10^3/uL (134-434); RBC 2.94 M/mm3 (4.00-5.60); WHITE BLOOD COUNT 9.4 K/mm3 (4.0-10.0)
[2023-10-19] MEDS ORDERED: VITAMIN B COMP W-C 1 EA TABLET (NEPHRO-VITE) PO SCH (10:00)
[2023-10-19 10:04] LABS: POTASSIUM 3.9 mmol/L (3.5-5.1)
[2023-10-19 10:18] LABS: CALCIUM 7.9 mg/dL (8.5-10.1)
[2023-10-19 10:19] LABS: ALBUMIN 1.9 g/dl (3.4-5.0); BLOOD UREA NITROGEN 18.4 mg/dL (7-18)
[2023-10-19 10:23] LABS: BILIRUBIN,TOTAL 0.4 mg/dL (0.2-1); CREATININE 1.6 mg/dL (0.55-1.3); TOT PROT 5.6 g/dl (6.4-8.2)
[2023-10-19] MEDS: metroNIDAZOLE 250 MG TABLET PO SCH (13:25)
[2023-10-19] MEDS: SODIUM CHLORIDE 1,000 ML IV SCH (15:17)
[2023-10-20] MEDS: INSULIN (NOVOLOG MIX 70/30) 100 UNITS/ML MDV SQ SCH (06:02)
[2023-10-20 10:00] LABS: BASO % 0.9 % (0-2.0); EOS % 2.4 % (0-4.5); HEMATOCRIT 25.1 % (35.4-49); HEMOGLOBIN 8.2 GM/dL (11.7-16.9); LYMPH % 21.5 % (8-40); MCH 29.1 pg (25.7-33.7); MCHC 32.8 g/dl (32.0-35.9); MEAN CELL VOLUME 88.7 fl (80-96); NEUT % 65.2 % (42.8-82.8); PLATELET COUNT 206 10^3/uL (134-434); RBC 2.83 M/mm3 (4.00-5.60); RDW 15.7 % (11.9-15.9); WHITE BLOOD COUNT 7.5 K/mm3 (4.0-10.0)
[2023-10-20 10:18] LABS: POTASSIUM 3.5 mmol/L (3.5-5.1)
[2023-10-20 10:29] LABS: ALBUMIN 1.9 g/dl (3.4-5.0); CALCIUM 7.6 mg/dL (8.5-10.1); MAGNESIUM 1.8 mg/dL (1.8-2.4)
[2023-10-20 10:30] LABS: CREATININE 1.6 mg/dL (0.55-1.3)
[2023-10-20 10:32] LABS: BILIRUBIN,TOTAL 0.2 mg/dL (0.2-1); PHOSPHOROUS 1.4 mg/dL (2.5-4.9); TOT PROT 5.3 g/dl (6.4-8.2)
[2023-10-20] MEDS: NAPH,MB-DB/K PH,MBDB POWDER PACKET PO SCH (11:47)
[2023-10-20] MEDS: SODIUM CHLORIDE 1,000 ML IV SCH (11:47)
[2023-10-20] MEDS ORDERED: LOPERAMIDE HCL 2 MG CAPSULE PO PRN (16:10)
[2023-10-20] MEDS: CARVEDILOL 12.5 MG TABLET (FP) PO SCH (21:54)
[2023-10-21 10:01] LABS: HEMATOCRIT 25.2 % (35.4-49); HEMOGLOBIN 8.2 GM/dL (11.7-16.9); MCH 28.7 pg (25.7-33.7); MCHC 32.4 g/dl (32.0-35.9); MEAN CELL VOLUME 88.6 fl (80-96); MEAN PLT VOLUME 8.8 fl (7.5-11.1); PLATELET COUNT 201 10^3/uL (134-434); RBC 2.84 M/mm3 (4.00-5.60); RDW 16.3 % (11.9-15.9); WHITE BLOOD COUNT 5.9 K/mm3 (4.0-10.0)
[2023-10-21 10:23] LABS: POTASSIUM 3.4 mmol/L (3.5-5.1)
[2023-10-21 10:36] LABS: CALCIUM 7.9 mg/dL (8.5-10.1)
[2023-10-21 10:37] LABS: ALBUMIN 1.8 g/dl (3.4-5.0); BLOOD UREA NITROGEN 17.9 mg/dL (7-18); MAGNESIUM 1.7 mg/dL (1.8-2.4)
[2023-10-21 10:40] LABS: CREATININE 1.5 mg/dL (0.55-1.3); PHOSPHOROUS 1.8 mg/dL (2.5-4.9)
[2023-10-21 10:41] LABS: BILIRUBIN,TOTAL 0.2 mg/dL (0.2-1); TOT PROT 5.4 g/dl (6.4-8.2)
[2023-10-21 11:37] VITALS: TEMP 98.2
[2023-10-21 12:11] VITALS: BMI 28.8
[2023-10-21] MEDS: MAGNESIUM 1GM/D5W - 1 GM/100 ML IVPB IVPB ONE (13:36)
[2023-10-21] MEDS: NAPH,MB-DB/K PH,MBDB POWDER PACKET PO ONE (14:49)
[2023-10-21] MEDS: POTASSIUM CHLORIDE TABS 20 MEQ TABLET.ER (FP) PO ONE (14:49)
[2023-10-21 16:03] VITALS: BP 106/58; PULSE 80; RESP 18
[2023-10-23 15:07] LABS: CA OXALATE MONOHYDR. 10 % (.); SIZE 8x7 mm (.); URIC ACID 90 % (.); WEIGHT 382 mg (.)
== END 2023-10-21 17:15 | DRG 854 ==
LOC: JER 18:34 → JERBED 22:54 → J6S 10-06 15:17
PROVIDERS: ADMIT Internal Medicine; ATTEND Internal Medicine
PROC: 3E1K88Z Irrigation of Genitourinary Tract using Irrigating Substance, Via Natural or Artificial Opening Endoscopic (ICD-10-PCS; 2023-10-13)
PROC: 0TCB8ZZ Extirpation of Matter from Bladder, Via Natural or Artificial Opening Endoscopic (ICD-10-PCS; principal; 2023-10-13 14:30)
PROC: 0DB98ZX Excision of Duodenum, Via Natural or Artificial Opening Endoscopic, Diagnostic (ICD-10-PCS; 2023-10-15)
PROC: 0DB68ZX Excision of Stomach, Via Natural or Artificial Opening Endoscopic, Diagnostic (ICD-10-PCS; 2023-10-15)
PROC: 0DB58ZX Excision of Esophagus, Via Natural or Artificial Opening Endoscopic, Diagnostic (ICD-10-PCS; 2023-10-15)
PROC: 0DBK8ZZ Excision of Ascending Colon, Via Natural or Artificial Opening Endoscopic (ICD-10-PCS; 2023-10-15)
PROC: 0DTJ4ZZ Resection of Appendix, Percutaneous Endoscopic Approach (ICD-10-PCS; 2023-10-18)
PROC: 0YU54JZ Supplement Right Inguinal Region with Synthetic Substitute, Percutaneous Endoscopic Approach (ICD-10-PCS; 2023-10-18)
PROC: 8E0W4CZ Robotic Assisted Procedure of Trunk Region, Percutaneous Endoscopic Approach (ICD-10-PCS; 2023-10-18)
DX: A41.89 Other specified sepsis (principal); D62 Acute posthemorrhagic anemia; E87.20 Acidosis, unspecified; K92.0 Hematemesis; N39.0 Urinary tract infection, site not specified; N17.9 Acute kidney failure, unspecified; K40.30 Unilateral inguinal hernia, with obstruction, without gangrene, not specified as recurrent; E87.6 Hypokalemia; I95.9 Hypotension, unspecified; E11.42 Type 2 diabetes mellitus with diabetic polyneuropathy; K59.00 Constipation, unspecified; N40.1 Benign prostatic hyperplasia with lower urinary tract symptoms; R33.8 Other retention of urine; N28.1 Cyst of kidney, acquired; E83.39 Other disorders of phosphorus metabolism; N21.0 Calculus in bladder; H40.9 Unspecified glaucoma; I44.7 Left bundle-branch block, unspecified; K76.0 Fatty (change of) liver, not elsewhere classified; I12.9 Hypertensive chronic kidney disease with stage 1 through stage 4 chronic kidney disease, or unspecified chronic kidney disease; E11.22 Type 2 diabetes mellitus with diabetic chronic kidney disease; N18.9 Chronic kidney disease, unspecified; D72.829 Elevated white blood cell count, unspecified; R63.4 Abnormal weight loss; Z68.28 Body mass index [BMI] 28.0-28.9, adult; K80.20 Calculus of gallbladder without cholecystitis without obstruction; D63.8 Anemia in other chronic diseases classified elsewhere; B96.20 Unspecified Escherichia coli [E. coli] as the cause of diseases classified elsewhere; D12.2 Benign neoplasm of ascending colon; K57.30 Diverticulosis of large intestine without perforation or abscess without bleeding; Z89.422 Acquired absence of other left toe(s)
CPT/HCPCS: 36415; 71045-TC-FY; 74176-TC; 76705-TC; 76775-TC; 80048; 80053; 81003; 82010; 82272; 82360; 82436; 82438; 82550; 82728; 82803; 82962; 83036; 83540; 83550; 83605; 83690; 83735; 83993; 84100; 84133; 84155; 84165; 84300; 84302; 84999; 85025; 85027; 85045; 85610; 85651; 85730; 86140; 86704; 86708; 86803; 86850; 86900; 86901; 87040; 87045; 87046; 87086; 87186; 87205; 87209; 87324; 87340; 87449; 87517; 87635; 88300-TC; 88304-TC; 88305-TC; 93005; 93010; 94760; 97116-GP; 97162-GP; 99285-25; C1758; C1781; G0480; J0131; J1644; J1756; J3480

== ENCOUNTER 2024-01-05 12:01 | Inpatient (IN) | payer OTHER, BC ==
[2024-01-05 13:52] LABS: CHLORIDE 113 mmol/L (98-107); SODIUM 136 mmol/L (136-145)
[2024-01-05 13:55] LABS: CALCIUM 8.7 mg/dL (8.5-10.1)
[2024-01-05 13:56] LABS: BLOOD UREA NITROGEN 52.3 mg/dL (7-18); CO2 19 mmol/L (21-32); GLUCOSE,RANDOM 99 mg/dL (74-106); MAGNESIUM 1.8 mg/dL (1.8-2.4)
[2024-01-05 13:59] LABS: ANION GAP 4 mmol/L (4-13); PHOSPHOROUS 4.4 mg/dL (2.5-4.9); POTASSIUM 6.7 mmol/L (3.5-5.1)
[2024-01-05 14:57] LABS: BASO % 3.6 % (0-2.0); HEMATOCRIT 25.4 % (35.4-49); HEMOGLOBIN 8.1 GM/dL (11.7-16.9); LYMPH % 23.9 % (8-40); MCH 26.3 pg (25.7-33.7); MCHC 31.7 g/dl (32.0-35.9); MEAN PLT VOLUME 7.8 fl (7.5-11.1); MONO % 10.7 % (3.8-10.2); NEUT % 60.8 % (42.8-82.8); PLATELET COUNT 254 10^3/uL (134-434); RBC 3.07 M/mm3 (4.00-5.60); RDW 17.6 % (11.9-15.9); WHITE BLOOD COUNT 6.8 K/mm3 (4.0-10.0)
[2024-01-05 15:00] LABS: EPI CELLS 7 /uL (0-25.1); HYALINE CASTS 0 /uL (0-3.1); PH,URINE 5.5 (5.0-8.0); URINE APPEARANCE TURBID; URINE BACTERIA 1544 /uL (0-1359); URINE BILIRUBIN NEGATIVE (NEGATIVE); URINE COLOR YELLOW; URINE GLUCOSE (UA) NEGATIVE (NEGATIVE); URINE KETONE NEGATIVE (NEGATIVE); URINE LEUK ESTERASE 3+ (NEGATIVE); URINE NITRITE NEGATIVE (NEGATIVE); URINE PROTEIN 1+ (NEGATIVE); URINE RBC 65 /uL (0-23.9); URINE UROBILINOGEN 0.2 mg/dL (0.2-1.0); URINE WBC 3748 /uL (0-25.8)
[2024-01-05 15:24] LABS: ALBUMIN 2.5 g/dl (3.4-5.0); BILIRUBIN,TOTAL 0.3 mg/dL (0.2-1); CALCIUM 8.5 mg/dL (8.5-10.1); CREATININE 3.9 mg/dL (0.55-1.3); MAGNESIUM 1.8 mg/dL (1.8-2.4); PHOSPHOROUS 4.2 mg/dL (2.5-4.9); POTASSIUM 5.9 mmol/L (3.5-5.1); TOT PROT 7.5 g/dl (6.4-8.2)
[2024-01-05 15:32] LABS: CHLORIDE 112 mmol/L (98-107); SODIUM 136 mmol/L (136-145)
[2024-01-05 15:33] LABS: CALCIUM 8.5 mg/dL (8.5-10.1); CO2 20 mmol/L (21-32); GLUCOSE,RANDOM 94 mg/dL (74-106)
[2024-01-05 15:34] LABS: BLOOD UREA NITROGEN 51.3 mg/dL (7-18)
[2024-01-05 15:39] LABS: ANION GAP 4 mmol/L (4-13); POTASSIUM 6.4 mmol/L (3.5-5.1)
[2024-01-05] MEDS ORDERED: CEFTRIAXONE 1 GM/50 ML BAG ONE (16:07)
[2024-01-05] MEDS ORDERED: SODIUM ZIRCONIUM CYCLOSILICATE (LOKELMA) 5 GM PACKET ONE (16:25)
[2024-01-05] MEDS ORDERED: CALCIUM GLUCONATE 10% - 1,000 MG/10 ML VIAL ONE (16:25)
[2024-01-05] MEDS ORDERED: INSULIN REGULAR HUMAN 100 UNITS/ML *VIAL ONE (16:27)
[2024-01-05] MEDS ORDERED: DEXTROSE 50%-WATER 25 GM/50 ML DISP.SYRIN ONE (16:34)
[2024-01-05] MEDS: INSULIN REGULAR HUMAN 100 UNITS/ML *VIAL IVPUSH ONE (16:46)
[2024-01-05] MEDS: SODIUM ZIRCONIUM CYCLOSILICATE (LOKELMA) 5 GM PACKET PO ONE (16:46)
[2024-01-05] MEDS: LACTATED RINGERS SOLUTION 1000 ML INFUS.BAG IV ONE (16:47)
[2024-01-05] MEDS: CALCIUM GLUCONATE 10% - 1,000 MG/10 ML VIAL IVPB ONE (16:47)
[2024-01-05] MEDS: DEXTROSE 50%-WATER - 25 GM/50 ML VIAL IVPUSH ONE (16:47)
[2024-01-05] MEDS: INSULIN REGULAR HUMAN 100 UNITS/ML *VIAL SQ ONE (16:48)
[2024-01-05 20:57] VITALS: BMI 27.5
[2024-01-05] MEDS ORDERED: ACETAMINOPHEN 325 MG TABLET (FP) PO PRN (23:42)
[2024-01-06] MEDS: BRIMONIDINE TARTRATE 0.2% OPHTHALMIC 5 ML BOTTLE OU SCH ×2 (01:11→21:38)
[2024-01-06 03:18] LABS: POTASSIUM 5.2 mmol/L (3.5-5.1)
[2024-01-06 03:19] LABS: CALCIUM 8.5 mg/dL (8.5-10.1)
[2024-01-06 03:20] LABS: BLOOD UREA NITROGEN 48.8 mg/dL (7-18)
[2024-01-06 07:16] LABS: BASO % 1.3 % (0-2.0); EOS % 2.4 % (0-4.5); HEMATOCRIT 25.6 % (35.4-49); HEMOGLOBIN 8.2 GM/dL (11.7-16.9); LYMPH % 22.3 % (8-40); MCH 26.4 pg (25.7-33.7); MCHC 31.9 g/dl (32.0-35.9); MEAN CELL VOLUME 82.7 fl (80-96); MEAN PLT VOLUME 8.2 fl (7.5-11.1); MONO % 12.7 % (3.8-10.2); NEUT % 61.3 % (42.8-82.8); PLATELET COUNT 257 10^3/uL (134-434); RDW 17.1 % (11.9-15.9); WHITE BLOOD COUNT 6.6 K/mm3 (4.0-10.0)
[2024-01-06] MEDS: VITAMIN B COMP W-C 1 EA TABLET (NEPHRO-VITE) PO SCH (09:19)
[2024-01-06] MEDS: CARVEDILOL 12.5 MG TABLET (FP) PO SCH (09:19)
[2024-01-06] MEDS: PANTOPRAZOLE 40 MG TABLET PO SCH (09:19)
[2024-01-06] MEDS ORDERED: PATIENT'S OWN MEDICATION (NON-FORMULARY) (Brimonidine Tartrate/Timolol [Combigan 0.2%-0.5% OU SCH (10:00)
[2024-01-06] MEDS ORDERED: INSULIN (NOVOLOG) ASPART 100 UNITS/ML 10ML VIAL ONE ×2 (10:28→17:11)
[2024-01-06] MEDS: INSULIN ASPART SLIDING SCALE (NOVOLOG) 1 VIAL SQ SCH (10:33)
[2024-01-06] MEDS: INSULIN (NOVOLOG MIX 70/30) 100 UNITS/ML MDV SQ SCH (10:33)
[2024-01-06] MEDS: NAPH,MB-DB/K PH,MBDB POWDER PACKET PO SCH (10:33)
[2024-01-06] MEDS: CEFTRIAXONE 1 GM in DEXTROSE 5%-WATER - 50 ML IVPB SCH (12:36)
[2024-01-06] MEDS: SODIUM ZIRCONIUM CYCLOSILICATE (LOKELMA) 5 GM PACKET PO SCH (15:23)
[2024-01-06] MEDS: SODIUM CHLORIDE 0.45% 1,000 ML IV SCH (17:23)
[2024-01-06] MEDS: LATANOPROST 0.005% OPHTH SOLN 2.5ML BOTTLE OU SCH (21:38)
[2024-01-06] MEDS: TIMOLOL 0.5% OPHTHALMIC SOL 5 ML BOTTLE OU SCH (21:38)
[2024-01-07 06:48] LABS: BASO % 2.3 % (0-2.0); EOS % 3.4 % (0-4.5); HEMATOCRIT 25.1 % (35.4-49); LYMPH % 25.6 % (8-40); MCH 26.2 pg (25.7-33.7); MEAN PLT VOLUME 8.1 fl (7.5-11.1); MONO % 12.1 % (3.8-10.2); NEUT % 56.6 % (42.8-82.8); PLATELET COUNT 235 10^3/uL (134-434); RBC 3.06 M/mm3 (4.00-5.60); RDW 17.1 % (11.9-15.9); WHITE BLOOD COUNT 6.6 K/mm3 (4.0-10.0)
[2024-01-07 07:12] LABS: CALCIUM 8.4 mg/dL (8.5-10.1)
[2024-01-07 07:13] LABS: ALBUMIN 2.3 g/dl (3.4-5.0); BLOOD UREA NITROGEN 47.4 mg/dL (7-18)
[2024-01-07 07:19] LABS: BILIRUBIN,TOTAL 0.2 mg/dL (0.2-1)
[2024-01-07 14:52] VITALS: BP 110/69; PULSE 74; RESP 18; TEMP 98.4
== END 2024-01-07 17:04 | disposition home or self-care (01) | DRG 641 ==
LOC: JER 12:01 → JERBED 17:26 → J4W 20:00
PROVIDERS: ADMIT Internal Medicine; ATTEND Internal Medicine
DX: E87.5 Hyperkalemia (principal); N17.9 Acute kidney failure, unspecified; N39.0 Urinary tract infection, site not specified; B96.1 Klebsiella pneumoniae [K. pneumoniae] as the cause of diseases classified elsewhere; E11.42 Type 2 diabetes mellitus with diabetic polyneuropathy; I10 Essential (primary) hypertension; K59.00 Constipation, unspecified; I12.9 Hypertensive chronic kidney disease with stage 1 through stage 4 chronic kidney disease, or unspecified chronic kidney disease; N18.9 Chronic kidney disease, unspecified; E11.22 Type 2 diabetes mellitus with diabetic chronic kidney disease; K76.0 Fatty (change of) liver, not elsewhere classified; Z89.422 Acquired absence of other left toe(s); F32.A Depression, unspecified
CPT/HCPCS: 36415; 76775-TC; 80048; 80053; 81003; 82962; 83735; 84100; 85025; 87086; 87186; 93005; 93010; 99285-25